=== PATIENT | female | born 1945 | race Caucasian/White ===

== ENCOUNTER 2016-04-22 16:55 | Observation (INO) | payer MEDICARE, OTHER ==
[2016-04-22] VITALS (7 sets, daily range): BP systolic 90–128; BP diastolic 54–60; PULSE 72; RESP 17–20; TEMP 97.8–100; O2SAT 94–100
[~2016-04-22] VITALS: Ht 170.2 cm; Wt 60.0 kg
[~2016-04-22 16:55] MED LIST: ADVAI250I PO; ARIC23TA PO; CETI10CH PO; CLON0.5T PO; LEVO.075 PO; MEMA14CA PO; OXCA300 PO; OXYB5TAB PO; TIOT18I INH; VITA20003 PO; [UNRECOGNIZED DRUG - CODE] IM; [UNRECOGNIZED DRUG - CODE] TOP
--- NOTE | 2016-04-22 17:09 | PD ---
HPI Chief Complaint: FEVER Time Seen by Provider: 17:08 Travel History International Travel<30 days: No Contact w/Intl Traveler<30days: No History of Present Illness HPI 71-year-old female with a history of COPD, dementia, MS is brought to the emergency department from her [facility] for evaluation of fever, cough and lethargy. Per EMS report the patient had a fever 100.8F and was 90% oxygen saturation on room air. Per EMS report the patient was noted to have a cough that started today by penitentiary staff. The patient is difficult to understand and a poor historian. When asking her questions I am able to understand her saying "I want to go back to my room" but otherwise cannot understand her. PFSH Past Medical History Autoimmune Disease: Yes (MS/ LEFT SIDED WEAKNESS) Bipolar Disorder: Yes Anxiety: Yes Depression: Yes COPD: Yes Cerebrovascular Accident: Yes Dementia: Yes Diminished Hearing: No Genitourinary: Yes (H/O UTI) Immune Disorder: Yes (MS AFFECTS L SIDE) Psychiatric: Yes (BIPOLAR ) Pneumonia: Yes Menopausal: Yes Tubal Ligation: Yes Social History Alcohol Use: No Tobacco Use: No (quit a long time ago) Substance Use: No Allergies-Medications (Allergen,Severity, Reaction): Coded Allergies: No Known Allergies (Unverified , 04/14/15) Reported Meds & Prescriptions Reported Meds & Active Scripts Active Reported Vitamin D3 (Cholecalciferol) 2,000 Unit Cap 2,000 Units PO DAILY Symbicort Inh (Budesonide/Formoterol Fumarate) 160-4.5 Mcg/Act Aero 2 Puff INH BID Spiriva Handihaler (Tiotropium Inh) 18 Mcg Cap 18 Mcg INH DAILY 1 capsule = 18 mcg Ditropan (Oxybutynin Chloride) 5 Mg Tab 5 Mg PO BID Trileptal (Oxcarbazepine) 300 Mg Tab 300 Mg PO BID Namenda Xr (Memantine) 28 Mg Caper 28 Mg PO DAILY Levothyroxine (Levothyroxine Sodium) 50 Mcg Tab 50 Mcg PO DAILY Donepezil 23 Mg Tab 23 Mg PO HS Do not split, crush or chew. Clonazepam 0.5 Mg Tab 0.5 Mg PO TID PRN Zyrtec Allergy (Cetirizine HCl) 10 Mg Tab 10 Mg PO DAILY Boudreauxs Butt Paste (Zinc Oxide (Topical)) 16 % Oin 1 Applic TOP BID PRN Ammonium Lactate (Lactic Acid (Ammonium Lactate)) 12% Lotn 1 Applic TOPICAL DAILY Review of Systems ROS Limitations: Poor Historian Except as stated in HPI: all other systems reviewed are Neg Physical Exam Exam Limitations: Poor Historian Narrative GENERAL: Well-nourished and well-developed female patient in no acute distress. SKIN: Warm and dry. HEAD: Normocephalic and atraumatic. EYES: No injection, drainage, or hyphema noted. PERRLA. EOMI. ENT: No nasal drainage noted. Oropharynx is clear. NECK: Supple and the trachea is midline. CARDIOVASCULAR: Regular rate and rhythm. RESPIRATORY: Decreased breath sounds at bases with crackles. No accessory muscle use, wheezing, rhonchi. Productive cough noted. GASTROINTESTINAL: Abdomen is soft, non-tender, and nondistended. MUSCULOSKELETAL: No obvious deformities, swelling, cyanosis, or ecchymosis is present throughout the upper and lower extremities. Patient has full range of motion without any signs of neurovascular compromise. NEUROLOGICAL: Awake, alert. Slurred speech and gait. Cranial nerves are grossly intact. Data Data Last Documented VS Vital Signs Date Time Temp Pulse Resp B/P Pulse Ox O2 Delivery O2 Flow Rate FiO2 04/22/16 19:00 98.5 04/22/16 17:34 17 100 Nasal Cannula 04/22/16 17:34 72 2 04/22/16 17:25 21 04/22/16 17:01 128/60 Orders Electrocardiogram (04/22/16 17:06) Complete Blood Count With Diff (04/22/16 17:06) Comprehensive Metabolic Panel (04/22/16 17:06) Lactic Acid Sepsis Protocol (04/22/16 17:06) Urinalysis - C+S If Indicated (04/22/16 17:06) Influenzae A/B Antigen (04/22/16 17:06) Blood Culture (04/22/16 17:06) Chest, Single Ap (04/22/16 17:06) Ecg Monitoring (04/22/16 17:06) Iv Access Insert/Monitor (04/22/16 17:06) Oximetry (04/22/16 17:06) Oxygen Administration (04/22/16 17:06) Albuterol-Ipratropium Neb (Duoneb Neb) (04/22/16 17:15) Acetaminophen (Tylenol) (04/22/16 17:15) Ct Brain W/O Iv Contrast(Rout) (04/22/16 17:17) Cath For Specimen (04/22/16 19:15) Ceftriaxone Inj (Rocephin Inj) (04/22/16 19:15) Azithromycin Inj (Zithromax Inj) (04/22/16 19:15) Labs Laboratory Tests Test 04/22/16 17:35 White Blood Count 8.6 TH/MM3 Red Blood Count 4.07 MIL/MM3 Hemoglobin 12.4 GM/DL Hematocrit 37.5 % Mean Corpuscular Volume 92.2 FL Mean Corpuscular Hemoglobin 30.5 PG Mean Corpuscular Hemoglobin 33.1 % Concent Red Cell Distribution Width 13.6 % Platelet Count 208 TH/MM3 Mean Platelet Volume 7.7 FL Neutrophils (%) (Auto) 78.9 % Lymphocytes (%) (Auto) 10.9 % Monocytes (%) (Auto) 9.7 % Eosinophils (%) (Auto) 0.3 % Basophils (%) (Auto) 0.2 % Neutrophils # (Auto) 6.8 TH/MM3 Lymphocytes # (Auto) 0.9 TH/MM3 Monocytes # (Auto) 0.8 TH/MM3 Eosinophils # (Auto) 0.0 TH/MM3 Basophils # (Auto) 0.0 TH/MM3 CBC Comment DIFF FINAL Differential Comment Sodium Level 142 MEQ/L Potassium Level 4.2 MEQ/L Chloride Level 105 MEQ/L Carbon Dioxide Level 28.1 MEQ/L Anion Gap 9 MEQ/L Blood Urea Nitrogen 10 MG/DL Creatinine 0.57 MG/DL Estimat Glomerular Filtration 104 ML/MIN Rate Random Glucose 86 MG/DL Lactic Acid Level 1.1 mmol/L Calcium Level 8.4 MG/DL Total Bilirubin 0.4 MG/DL Aspartate Amino Transf 25 U/L (AST/SGOT) Alanine Aminotransferase 16 U/L (ALT/SGPT) Alkaline Phosphatase 133 U/L Total Protein 6.6 GM/DL Albumin 3.4 GM/DL MDM Medical Decision Making Medical Screen Exam Complete: Yes Emergency Medical Condition: Yes Differential Diagnosis Pneumonia versus bronchitis versus UTI versus sepsis versus other Narrative Course 71-year-old female is brought to the emergency department for evaluation of fever, cough and lethargy. Patient has a low-grade temperature of 100.0F orally here in the emergency department. Otherwise vital signs are within normal limits. She had a 90% oxygen saturation on room air per EMS. IV access was obtained, labs have been drawn and sent. I did speak with the patient's daughter Connor who is a medical provider. She informed me that her mother's dementia has been worsening recently but that she is usually able to understand her mother's speech, states sometimes this can be worse with her MS. Chest x-ray read by radiology shows subtle hazy opacity in the left base may represent a small pleural effusion with atelectasis. CBC is unremarkable. CMP is unremarkable. Lactic acid is 1.1. Head CT is negative for any acute abnormalities. Patient has remained stable and without complaint while here in the emergency department. Reports improvement of symptoms after nebulizers. Her oxygen saturation has been maintained at around 98% on 2 L of nasal cannula. Patient is now easier to understand, she is no longer upset and anxious and her speech is easier to understand. Per the daughter this is her baseline speech. Patient will be admitted for pneumonia to receive antibiotics and nebulizers. Sepsis Criteria SIRS Criteria (2 or more): Temp > 100.9 or < 96.8 Physician Communication Physician Communication I spoke with Carlo GARCIAS for [facility] who agrees to admit the patient to Dr. Lee's service. Diagnosis Primary Impression: Pneumonia Qualified Code: J18.1 - Pneumonia of left lower lobe due to infectious organism Admitting Information Admitting Physician Requests: Admit Génesis Melgar Apr 22, 2016 17:09
[2016-04-22] MEDS ORDERED: ACETAMINOPHEN 325 MG TAB PO ONE (17:15)
[2016-04-22] MEDS ORDERED: AMMO12LO TOPICAL (17:23)
[2016-04-22] MEDS: RESP: ALBUTEROL 2.5 MG/IPRATROPIUM 0.5 MG NEB (SCH) INH (17:24)
[2016-04-22] MEDS ORDERED: LEVO50TA4 PO (17:29)
[2016-04-22] MEDS ORDERED: OXYB5TAB10 PO (17:29)
[2016-04-22] MEDS ORDERED: SYMB160A INH (17:29)
[2016-04-22] MEDS ORDERED: DONE1TAB63 PO (17:29)
[2016-04-22] MEDS ORDERED: MEMA28CA PO (17:29)
[2016-04-22] MEDS ORDERED: BOUDPST TOP (17:29)
[2016-04-22] MEDS ORDERED: CLON0.5T PO (17:29)
[2016-04-22] MEDS ORDERED: TRIL300T PO (17:29)
[2016-04-22] MEDS ORDERED: SPIRCAP INH (17:29)
[2016-04-22] MEDS ORDERED: VITA2000 PO (17:29)
[2016-04-22] MEDS ORDERED: ZYRT10TA PO (17:29)
--- NOTE | 2016-04-22 17:45 | RADRPT ---
EXAM DATE/TIME: 04/22/2016 17:24 [facility] COMPARISON: No previous studies available for comparison. INDICATIONS : Cough. MEDICAL HISTORY : Multiple sclerosis SURGICAL HISTORY : None. ENCOUNTER: Initial ACUITY: 1 day PAIN SCORE: Non-responsive. LOCATION: Bilateral chest FINDINGS: Portable AP view of the chest demonstrates a normal-sized cardiac silhouette. There is hazy opacity a t the left base. No pneumothorax is visualized. Bones and soft tissues demonstrate no acute finding. CONCLUSION: Subtle hazy opacity at the left base may represent a small pleural effusion with atelectasis. Otherwi se, no acute finding is identified. Carlo Daly MD on April 22, 2016 at 17:42 Board Certified Radiologist. This report was verified electronically.
[2016-04-22 17:58] LABS: AUTOMATED NEUTROPHIL # 6.8 TH/MM3 (1.8-7.7); BASOPHIL % 0.2 % (0.0-2.0); EOSINOPHIL % 0.3 % (0.0-4.0); HEMATOCRIT 37.5 % (35.0-46.0); HEMO FLAGS DIFF FINAL; LYMPH % 10.9 % (9.0-44.0); LYMPHOCYTE # 0.9 TH/MM3 (1.0-4.8); MEAN CELL VOLUME 92.2 FL (80.0-100.0); MEAN CORPUSCULAR HEMOGLOBIN 30.5 PG (27.0-34.0); MEAN CORPUSCULAR HGB CONC 33.1 % (32.0-36.0); MONO % 9.7 % (0.0-8.0); NEUT % 78.9 % (16.0-70.0); PLATELET COUNT 208 TH/MM3 (150-450); RED BLOOD COUNT 4.07 MIL/MM3 (4.00-5.30); RED CELL DISTRIBUTION WIDTH 13.6 % (11.6-17.2); WHITE BLOOD COUNT 8.6 TH/MM3 (4.0-11.0)
--- NOTE | 2016-04-22 18:24 | RADRPT ---
EXAM DATE/TIME: 04/22/2016 18:06 [facility] COMPARISON: CT BRAIN W/O CONTRAST, February 15, 2013, 18:42. INDICATIONS : Generalized weakness; fever. RADIATION DOSE: 36.42 CTDIvol (mGy) MEDICAL HISTORY : Dementia. SURGICAL HISTORY : None. ENCOUNTER: Initial ACUITY: 1 day PAIN SCALE: 3/10 LOCATION: cranial TECHNIQUE: Multiple contiguous axial images were obtained of the head. Using automated exposure control and adj ustment of the mA and/or kV according to patient size, radiation dose was kept as low as reasonably a chievable to obtain optimal diagnostic quality images. FINDINGS: CEREBRUM: The ventricles are normal for age. No evidence of midline shift, mass lesion, hemorrhage or acute in farction. No extra-axial fluid collections are seen. Chronic low attenuation seen in the bilateral p eriventricular white matter. POSTERIOR FOSSA: The cerebellum and brainstem are intact. The 4th ventricle is midline. The cerebellopontine angle i s unremarkable. EXTRACRANIAL: There is mucoperiosteal thickening seen of the sphenoid and ethmoid air cells, especially on the righ t. SKULL: The calvaria is intact. No evidence of skull fracture. CONCLUSION: No acute intracranial abnormality. Chronic white matter changes are again noted. There is sinus disea se. Carlo Lynn MD on April 22, 2016 at 18:22 Board Certified Radiologist. This report was verified electronically.
[2016-04-22 18:26] LABS: ALKALINE PHOSPHATASE 133 U/L (45-117); TOTAL BILIRUBIN ADULT 0.4 MG/DL (0.2-1.0)
[2016-04-22 18:55] LABS: ALT (GPT) 16 U/L (10-53); ANION GAP 9 MEQ/L (5-15); AST (GOT) 25 U/L (15-37); BICARBONATE 28.1 MEQ/L (21.0-32.0); BLOOD UREA NITROGEN 10 MG/DL (7-18); CHLORIDE 105 MEQ/L (98-107); GLOMERULAR FILTRATION RATE 104 ML/MIN (>89); POTASSIUM 4.2 MEQ/L (3.5-5.1); SODIUM (NA) 142 MEQ/L (136-145)
[2016-04-22] MEDS ORDERED: AZITHROMYCIN INJ 500 MG in SODIUM CHLOR 0.9% 250 ML INJ 250 ML IV ONE (19:15)
[2016-04-22] MEDS ORDERED: cefTRIAXone INJ 1,000 MG in SODIUM CHLORIDE 0.9% INJ 100 ML IV ONE (19:15)
[2016-04-22 20:44] LABS: BACTERIA, URINE MANY /hpf; BLOOD, URINE NEG (NEG); COMMENT (UR) CATH-CULTURE IND; CULTURE IF INDICATED CATH CULTURE IND; GLUCOSE,URINE NEG (NEG); KETONE, URINE 40 mg/dL (NEG); MUCUS URINE FEW /lpf (OCC); NITRITE,URINE POS (NEG); PH, URINE 5.5 (5.0-8.5); SQUAMOUS EPITHELIAL CELL URINE <1 /hpf (0-5); URINE COLOR YELLOW (YELLW/STRAW)
[2016-04-22] MEDS ORDERED: SODIUM CHLORIDE 0.9% FLUSH 5 ML FLUSH FLUSH PRN (20:45)
[2016-04-22] MEDS ORDERED: ACETAMINOPHEN 325 MG TAB PO PRN (20:45)
[2016-04-22] MEDS ORDERED: RESP: ALBUTEROL 2.5 MG/IPRATROPIUM 0.5 MG NEB (PRN) NEB (20:45)
[2016-04-22] MEDS ORDERED: NALOXONE HCL 0.4 MG/ML AMP IV PRN (20:45)
[2016-04-22] MEDS ORDERED: ONDANSETRON HCL 4 MG/2 ML VIAL IVP PRN (20:45)
[2016-04-22] MEDS: SODIUM CHLORIDE 0.9% FLUSH 5 ML FLUSH FLUSH SCH (21:00)
[2016-04-22] MEDS: HEPARIN SODIUM - SQ 10,000 UNITS/ML VIAL SQ SCH (22:08)
[2016-04-23 04:15] VITALS: BP 112/71; PULSE 68; RESP 16; TEMP 98.2; O2SAT 97
[2016-04-23] MEDS: RESP: ALBUTEROL 2.5 MG/IPRATROPIUM 0.5 MG NEB (SCH) NEB ×2 (07:28→15:32)
[2016-04-23 07:30] VITALS: O2SAT 95
--- NOTE | 2016-04-23 07:51 | HHI.HP ---
HPI Service [facility] Primary Care Physician Unknown Admission Diagnosis Pneumonia Diagnoses: Chief Complaint: cough (Pili Gonzalez) Travel History International Travel<30 Days: No Contact w/Intl Traveler <30 Da: No Traveled to Known Affected Are: No (Pili Gonzalez) History of Present Illness This is a 71-year-old female with a history of COPD, dementia, MS brought to the emergency department from her penitentiary facility [facility] for evaluation of fever, cough and lethargy. Per EMS report the patient had a fever 100.8F and was 90% oxygen saturation on room air. Patient was noted to have a cough that started today by penitentiary staff. The patient was difficult to understand and a poor historian. Pt. was evaluated in the ED, was noted febrile T-100, BP 128/60, HR 72, sats 95% on RA. CXR done showed left base opacity. CT head negative. Last Impressions Head CT 04/22/16 1717 Signed Impressions: Service Date/Time: Friday, April 22, 2016 18:06 - CONCLUSION: No acute intracranial abnormality. Chronic white matter changes are again noted. There is sinus disease. Carlo Lynn MD Chest X-Ray 04/22/16 1706 Signed Impressions: Service Date/Time: Friday, April 22, 2016 17:24 - CONCLUSION: Subtle hazy opacity at the left base may represent a small pleural effusion with atelectasis. Otherwise, no acute finding is identified. Carlo Daly MD Cultures were obtained, Influenza negative. Laboratory work up unremarkable, lactic acid negative. UA + UTI, culture pending. Antibiotics have been started. She was given duonebs. Pt.'s mental status is now at baseline per daughter, she has no complaints. Denies CP, SOB, no cough. Pt. pleasantly demented, cooperative. Pt. admitted for further evaluation and treatment. (Pili Gonzalez) Review of Systems ROS Limitations: Poor Historian (Pili Gonzalez) Past Family Social History Past Medical History COPD MS with left sided deficit Dementia Bipolar Past Surgical History None reported Reported Medications Reported Meds & Active Scripts Active Reported Vitamin D3 (Cholecalciferol) 2,000 Unit Cap 2,000 Units PO DAILY Symbicort Inh (Budesonide/Formoterol Fumarate) 160-4.5 Mcg/Act Aero 2 Puff INH BID Spiriva Handihaler (Tiotropium Inh) 18 Mcg Cap 18 Mcg INH DAILY 1 capsule = 18 mcg Ditropan (Oxybutynin Chloride) 5 Mg Tab 5 Mg PO BID Trileptal (Oxcarbazepine) 300 Mg Tab 300 Mg PO BID Namenda Xr (Memantine) 28 Mg Caper 28 Mg PO DAILY Levothyroxine (Levothyroxine Sodium) 50 Mcg Tab 50 Mcg PO DAILY Donepezil 23 Mg Tab 23 Mg PO HS Do not split, crush or chew. Clonazepam 0.5 Mg Tab 0.5 Mg PO TID PRN Zyrtec Allergy (Cetirizine HCl) 10 Mg Tab 10 Mg PO DAILY Boudreauxs Butt Paste (Zinc Oxide (Topical)) 16 % Oin 1 Applic TOP BID PRN Ammonium Lactate (Lactic Acid (Ammonium Lactate)) 12% Lotn 1 Applic TOPICAL DAILY (Pili Gonzalez) Allergies: Coded Allergies: No Known Allergies (Unverified , 04/14/15) Active Ordered Medications Inpatient Medications Acetaminophen (Tylenol) 650 mg Q4H PRN PO TEMP > 100.4; Start 04/22/16 at 20:45 Acetaminophen 650 mg 650 mg ONCE ONCE PO Last administered on 04/22/16 17:15; Start 04/22/16 at 17:15; Stop 04/22/16 at 17:16; Status DC Albuterol/ Ipratropium (Duoneb Neb) 1 ampule Q8HR WHILE AWAKE NEB NEB Last administered on 04/23/16 07:28; Start 04/23/16 at 08:00 Azithromycin/ Sodium Chloride (Zithromax Inj/ NS 250 ml Inj) 250 ml @ 250 mls/ hr Q24H IV ; Start 04/23/16 at 19:00 Ceftriaxone Sodium 1000 mg/ Sodium Chloride 100 ml @ 200 mls/hr Q24H IV ; Start 04/23/16 at 20:00 Ceftriaxone Sodium/Sodium Chloride (Rocephin Inj/NS Inj) 100 ml @ 200 mls/hr ONCE ONCE IV Last administered on 04/22/16 19:27; Start 04/22/16 at 19:15; Stop 04/22/16 at 19:44; Status DC Heparin Sodium (Porcine) (Heparin Inj) 5,000 units Q12H SQ Last administered on 04/22/16t 22:08; Start 04/22/16 at 21:00 IV Flush (NS Flush) 2 ml BID FLUSH ; Start 04/22/16 at 21:00 Naloxone HCl 0.4 mg 0.4 mg UNSCH PRN IV SEE LABEL COMMENTS; Start 04/22/16 at 20 :45 Ondansetron HCl (Zofran Inj) 4 mg Q6H PRN IVP NAUSEA OR VOMITING; Start at 20:45 Family History Unable to obtain Social History [facility]. No reported ETOH, substance abuse, smoked many years ago. Daughter is an HEALTH CARE ADMINISTRATOR at this facility. (Pili Gonzalez HEALTH CARE ADMINISTRATOR) Physical Exam Vital Signs Vital Signs Date Time Temp Pulse Resp B/P Pulse Ox O2 Delivery O2 Flow Rate FiO2 04/23/16 07:30 95 21 04/23/16 04:15 98.2 68 16 112/71 97 04/22/16 23:43 99 04/22/16 22:45 97.8 72 20 90/54 97 04/22/16 22:00 98 20 90/58 95 04/22/16 19:00 98.5 04/22/16 17:34 17 100 Nasal Cannula 04/22/16 17:34 94 Nasal Cannula 2.00 04/22/16 17:34 72 17 100 2 04/22/16 17:34 100 Nasal Cannula 2 04/22/16 17:25 94 21 04/22/16 17:01 100.0 72 18 128/60 Physical Exam GENERAL: This is a well-nourished, well-developed patient, in no apparent distress. SKIN: No rashes, ecchymoses or lesions. Cool and dry. HEAD: Atraumatic. Normocephalic. No temporal or scalp tenderness. EYES: Pupils equal round and reactive. Extraocular motions intact. No scleral icterus. No injection or drainage. ENT: Nose without bleeding, purulent drainage or septal hematoma. Throat without erythema, tonsillar hypertrophy or exudate. Uvula midline. Airway patent. NECK: Trachea midline. No JVD or lymphadenopathy. Supple, nontender, no meningeal signs. CARDIOVASCULAR: Regular rate and rhythm without murmurs, gallops, or rubs. RESPIRATORY: Diminished at bases. GASTROINTESTINAL: Abdomen soft, non-tender, nondistended. No hepato-splenomegaly , or palpable masses. No guarding. MUSCULOSKELETAL: Extremities without clubbing, cyanosis, or edema. No joint tenderness, effusion, or edema noted. No calf tenderness. Negative Homans sign bilaterally. NEUROLOGICAL: Awake, alert oriented to self and others, speech clear, follows simple commands. Pleasant, demented. Laboratory Laboratory Tests Test 04/22/16 04/22/16 17:35 20:00 White Blood Count 8.6 Red Blood Count 4.07 Hemoglobin 12.4 Hematocrit 37.5 Mean Corpuscular Volume 92.2 Mean Corpuscular Hemoglobin 30.5 Mean Corpuscular Hemoglobin 33.1 Concent Red Cell Distribution Width 13.6 Platelet Count 208 Mean Platelet Volume 7.7 Neutrophils (%) (Auto) 78.9 Lymphocytes (%) (Auto) 10.9 Monocytes (%) (Auto) 9.7 Eosinophils (%) (Auto) 0.3 Basophils (%) (Auto) 0.2 Neutrophils # (Auto) 6.8 Lymphocytes # (Auto) 0.9 Monocytes # (Auto) 0.8 Eosinophils # (Auto) 0.0 Basophils # (Auto) 0.0 CBC Comment DIFF FINAL Differential Comment Sodium Level 142 Potassium Level 4.2 Chloride Level 105 Carbon Dioxide Level 28.1 Anion Gap 9 Blood Urea Nitrogen 10 Creatinine 0.57 Estimat Glomerular Filtration 104 Rate Random Glucose 86 Lactic Acid Level 1.1 Calcium Level 8.4 Total Bilirubin 0.4 Aspartate Amino Transf 25 (AST/SGOT) Alanine Aminotransferase 16 (ALT/SGPT) Alkaline Phosphatase 133 Total Protein 6.6 Albumin 3.4 Urine Color YELLOW Urine Turbidity HAZY Urine pH 5.5 Urine Specific [place] 1.022 Urine Protein TRACE Urine Glucose (UA) NEG Urine Ketones 40 Urine Occult Blood NEG Urine Nitrite POS Urine Bilirubin NEG Urine Urobilinogen LESS THAN 2.0 Urine Leukocyte Esterase NEG Urine RBC 5 Urine WBC 3 Urine Squamous Epithelial <1 Cells Urine Bacteria MANY Urine Mucus FEW Microscopic Urinalysis Comment CATH-CULTURE IND Date/Time Procedure Status Source Growth 04/22/16 20:00 Urine Culture Received Urine Catheterized Urine Pending 04/22/16 20:00 Influenza Types A,B Antigen (SKYLAR) - Final Complete Nasal Washing NEGATIVE FOR FLU A AND B ANTIGEN.... 04/22/16 17:35 Aerobic Blood Culture Received Blood Peripheral Pending 04/22/16 17:35 Anaerobic Blood Culture Received Blood Peripheral Pending (Pili Gonzalez) Result Diagram: 04/22/16 1735 04/22/16 1735 Imaging Last Impressions Head CT 04/22/16 1717 Signed Impressions: Service Date/Time: Friday, April 22, 2016 18:06 - CONCLUSION: No acute intracranial abnormality. Chronic white matter changes are again noted. There is sinus disease. Carlo Lynn MD Chest X-Ray 04/22/166 Signed Impressions: Service Date/Time: Friday, April 22, 2016 17:24 - CONCLUSION: Subtle hazy opacity at the left base may represent a small pleural effusion with atelectasis. Otherwise, no acute finding is identified. Carlo Daly MD (Pili Gonzalez) Assessment and Plan Problem List: (1) Pneumonia (2) COPD (chronic obstructive pulmonary disease) (3) Dementia (4) Hx of multiple sclerosis (5) UTI (urinary tract infection) (6) Altered mental status (7) Bipolar disorder Assessment and Plan Admit to Dr. Lee 71 year with dementia, COPD, MS. Brought in for fever, cough, hypoxia, AMS. CXR found subtle hazy opacity left base and UTI. PNA, etiology unclear, prior hx of dysphagia, lives at [place] -continue empiric antibiotics -follow cultures -Duonebs -Swallow evaluation UTI -Follow cultures -Continue abx Dementia -Continue home meds COPD, stable -Duonebs -Continue Symbicort and Spiriva Hx MS -stable, monitor Bipolar disorder, stable -Continue home meds Home medications reviewed and initiated as indicated. SCDs/Heparin for DVT prophylaxis PT for evaluation and treatment Plan of care discussed with attending, RN. Further management of the patient will be dependent on the hospital course. This patient was seen by myself and Dr. Lee, this H/P is written on his behalf. (Pili Gonzalez) Assessment and Plan seen, examined by myself, Dr Lee, today Discussed with patient, she is confused, no distress however coughing repeatedly Bilateral crackles on chest exam Continue antibiotics, supplemental oxygen, as needed bronchodilators Discussed with mid level provider The exam, history, and the medical decision-making described in the above note were completed with the assistance of the mid-level provider. I reviewed the findings presented. I attest that I had a [id number] encounter with the patient on the same day, and personally performed and documented my assessment and findings in the medical record. (Kerline Lee MD) Problem Qualifiers (1) Pneumonia: Qualified Code: J18.1 - Pneumonia of left lower lobe due to infectious organism (2) COPD (chronic obstructive pulmonary disease): Qualified Code: J44.9 - Chronic obstructive pulmonary disease, unspecified COPD type (3) Dementia: Qualified Code: F03.90 - Dementia without behavioral disturbance, unspecified dementia type (4) UTI (urinary tract infection): Qualified Code: N39.0 - Urinary tract infection without hematuria, site unspecified (5) Altered mental status: Qualified Code: R40.4 - Transient alteration of awareness (6) Bipolar disorder: Qualified Code: F31.9 - Bipolar affective disorder, remission status unspecified Pili Gonzalez Apr 23, 2016 07:51 Kerline Lee MD Apr 23, 2016 13:54
[2016-04-23 08:51] VITALS: BP 109/61; PULSE 72; RESP 17; TEMP 98.3; O2SAT 95
[2016-04-23] MEDS: CETIRIZINE HCL 10 MG TAB PO SCH (10:23)
[2016-04-23] MEDS: LEVOTHYROXINE SODIUM 50 MCG TAB PO SCH (10:24)
[2016-04-23] MEDS: OXYBUTYNIN CHLORIDE 5 MG TAB PO SCH ×2 (10:24→22:27)
[2016-04-23] MEDS: BUDESONIDE-FORMOTEROL 160/4.5 MCG INHALER INH SCH ×2 (10:24→22:26)
[2016-04-23] MEDS: SODIUM CHLORIDE 0.9% FLUSH 5 ML FLUSH FLUSH SCH ×2 (10:25→22:26)
[2016-04-23] MEDS: TIOTROPIUM BROMIDE 18 MCG INH INH SCH (10:25)
[2016-04-23] MEDS: OXcarbazepine 300 MG TAB PO SCH ×2 (10:26→22:27)
[2016-04-23] MEDS: HEPARIN SODIUM - SQ 10,000 UNITS/ML VIAL SQ SCH ×2 (10:29→22:26)
--- NOTE | 2016-04-23 13:04 | EKG ---
Date Performed: 04/22/2016 Time Performed: 17:53:21 PTAGE: 71 years EKG: SINUS TACHYCARDIA WITH FREQUENT VENTRICULAR PREMATURE COMPLEXES LEFT AXIS DEVIATION ABNORMA L R WAVE PROGRESSION ABNORMAL ECG PREVIOUS TRACING : 02/15/2013 16.52 Compared to previous tracing, PVCs are now present. DOCTOR: Oliver Calloway Interpretating Date/Time 04/23/2016 13:02:20
[2016-04-23 14:24] VITALS: BP 101/62; PULSE 78; RESP 18; TEMP 97.5; O2SAT 94
[2016-04-23 17:23] VITALS: BP 129/57; PULSE 89; RESP 16; TEMP 97.7; O2SAT 94
[2016-04-23 19:50] VITALS: BP 128/63; PULSE 80; RESP 18; TEMP 98.2; O2SAT 98
[2016-04-23] MEDS: cefTRIAXone INJ 1,000 MG in SODIUM CHLORIDE 0.9% INJ 100 ML IV SCH (22:25)
[2016-04-23] MEDS: DONEPEZIL HCL 23 MG TAB PO SCH (22:27)
[2016-04-23] MEDS: AZITHROMYCIN INJ 500 MG in SODIUM CHLOR 0.9% 250 ML INJ 250 ML IV SCH (22:57)
[2016-04-24] VITALS (7 sets, daily range): BP systolic 102–128; BP diastolic 55–72; PULSE 74–90; RESP 14–20; TEMP 97.7–98.2; O2SAT 92–98
[2016-04-24] MEDS: LEVOTHYROXINE SODIUM 50 MCG TAB PO SCH (06:02)
[2016-04-24] MEDS: RESP: ALBUTEROL 2.5 MG/IPRATROPIUM 0.5 MG NEB (SCH) NEB ×2 (08:13→16:05)
--- NOTE | 2016-04-24 08:38 | HHI.PR ---
Subjective Subjective Remarks + cough no cp no sob demented pleasant no fever overnight Review of Systems Constitutional Constitutional Remarks 12 point ROS limited Vitals/Results Vital Signs Vital Signs Date Time Temp Pulse Resp B/P Pulse Ox O2 Delivery O2 Flow Rate FiO2 04/24/16 08:15 95 21 04/24/16 08:00 98.2 78 14 113/72 95 04/24/16 00:11 98.0 74 18 112/62 98 04/23/16 19:50 98.2 80 18 128/63 98 04/23/16 17:23 97.7 89 16 129/57 94 04/23/16 14:24 97.5 78 18 101/62 94 04/23/16 08:51 98.3 72 17 109/61 95 CBC/BMP: 04/22/16 1735 04/22/16 1735 Physical Exam General General Appearance: Well Developed, No Acute Distress, Comfortable Eyes Eye Exam: Pupils Equal, Pupils Reactive Ears & Nose Ears & Nose Exam: Nasal Mucosa [place] Throat Throat Exam: Oral Mucosa [place] & Moist Pulmonary Resp Exam: Crackles, Rhonchi Cardiology CV Exam: Regular Gastrointestinal/Abdomen GI Exam: Soft, Non-Tender, Bowel Sounds Present, Non-Distended Musculoskeletal MS Exam: Joints Intact Integumentary Skin Exam: Warm, Dry Extremeties Extremities Exam: No Edema, Pedal Pulses Palpable Neurologic Neuro Exam: Alert, Awake, Speech Clear, Moving All Extremities, No Focal Deficits VTE Prophylaxis VTE Prophylaxis Meds: Heparin Assessment/Plan Problem List: (1) Pneumonia (2) COPD (chronic obstructive pulmonary disease) (3) Bipolar disorder (4) Dementia (5) UTI (urinary tract infection) (6) Altered mental status (7) Hx of multiple sclerosis Assessment/Plan 71 year with dementia, COPD, MS. Brought in for fever, cough, hypoxia, AMS. CXR found subtle hazy opacity left base and UTI. PNA, etiology unclear, prior hx of dysphagia, lives at [place] -continue empiric antibiotics -follow cultures-negative so far -Duonebs -Swallow evaluation-recommendations noted, no aspiration observed UTI -Follow cultures-negative so far -Continue abx Dementia -Continue home meds COPD, stable -Duonebs -Continue Symbicort and Spiriva Hx MS -stable, monitor Bipolar disorder, stable -Continue home meds SCDs/Heparin for DVT prophylaxis PT for evaluation and treatment Not ready for discharge yet, lungs coarse, + cough poss. dc tomorrow to [facility] for HHC and pt D/W RN D/W pt D/W Dr. Lee This patient was seen by myself and Dr. Lee, this note is written on his behalf. Problem Qualifiers (1) Pneumonia: Qualified Code: J18.1 - Pneumonia of left lower lobe due to infectious organism (2) COPD (chronic obstructive pulmonary disease): Qualified Code: J44.9 - Chronic obstructive pulmonary disease, unspecified COPD type (3) Bipolar disorder: Qualified Code: F31.9 - Bipolar affective disorder, remission status unspecified (4) Dementia: Qualified Code: F03.90 - Dementia without behavioral disturbance, unspecified dementia type (5) UTI (urinary tract infection): Qualified Code: N39.0 - Urinary tract infection without hematuria, site unspecified (6) Altered mental status: Qualified Code: R40.4 - Transient alteration of awareness Pili Gonzalez Apr 24, 2016 08:38
--- NOTE | 2016-04-24 08:40 | HHI.FF ---
Face to Face Verification Diagnosis: (1) Pneumonia (2) COPD (chronic obstructive pulmonary disease) (3) Bipolar disorder (4) Dementia (5) UTI (urinary tract infection) (6) Altered mental status (7) Hx of multiple sclerosis Physical Therapy Order: Evaluate and Treat Home Health Nursing Order: Medical education Nursing assessment with vital signs Quarantine Officer Order: To Evaluate: Support services I have seen patient Sophia Mcintyre on 04/24/16. My clinical findings support the need for the requested home health care services because: Deconditioned w/ increased weakness Limited ability to care for self Need for psychosocial assistance Impaired cognition/judgement I certify that my clinical findings support that this patient is homebound because: Impaired cognitive ability/safety Unsafe to leave home unassisted Need for psychosocial assistance Pili Gonzalez [facility] Apr 24, 2016 08:39
[2016-04-24] MEDS: CETIRIZINE HCL 10 MG TAB PO SCH (08:46)
[2016-04-24] MEDS: SODIUM CHLORIDE 0.9% FLUSH 5 ML FLUSH FLUSH SCH ×2 (08:46→21:00)
[2016-04-24] MEDS: OXYBUTYNIN CHLORIDE 5 MG TAB PO SCH ×2 (08:46→21:48)
[2016-04-24] MEDS: OXcarbazepine 300 MG TAB PO SCH ×2 (08:46→21:48)
[2016-04-24] MEDS: TIOTROPIUM BROMIDE 18 MCG INH INH SCH (08:46)
[2016-04-24] MEDS: BUDESONIDE-FORMOTEROL 160/4.5 MCG INHALER INH SCH ×2 (08:46→21:48)
[2016-04-24] MEDS: HEPARIN SODIUM - SQ 10,000 UNITS/ML VIAL SQ SCH ×2 (08:47→21:48)
[2016-04-24] MEDS: AZITHROMYCIN INJ 500 MG in SODIUM CHLOR 0.9% 250 ML INJ 250 ML IV SCH (18:55)
[2016-04-24] MEDS: cefTRIAXone INJ 1,000 MG in SODIUM CHLORIDE 0.9% INJ 100 ML IV SCH (21:47)
[2016-04-24] MEDS: DONEPEZIL HCL 23 MG TAB PO SCH (21:48)
[2016-04-25 03:36] VITALS: BP 122/66; PULSE 76; RESP 16; TEMP 97.9; O2SAT 93
[2016-04-25] MEDS: LEVOTHYROXINE SODIUM 50 MCG TAB PO SCH (05:33)
[2016-04-25 07:20] VITALS: BP 124/78; PULSE 84; RESP 16; TEMP 98.3; O2SAT 94
[2016-04-25] MEDS: BUDESONIDE-FORMOTEROL 160/4.5 MCG INHALER INH SCH (07:54)
[2016-04-25] MEDS: CETIRIZINE HCL 10 MG TAB PO SCH (07:55)
[2016-04-25] MEDS: RESP: ALBUTEROL 2.5 MG/IPRATROPIUM 0.5 MG NEB (SCH) NEB (07:55)
[2016-04-25] MEDS: TIOTROPIUM BROMIDE 18 MCG INH INH SCH (07:55)
[2016-04-25] MEDS: OXcarbazepine 300 MG TAB PO SCH (07:55)
[2016-04-25] MEDS: HEPARIN SODIUM - SQ 10,000 UNITS/ML VIAL SQ SCH (07:55)
[2016-04-25] MEDS: OXYBUTYNIN CHLORIDE 5 MG TAB PO SCH (07:55)
[2016-04-25 08:01] VITALS: O2SAT 92
[2016-04-25] MEDS: SODIUM CHLORIDE 0.9% FLUSH 5 ML FLUSH FLUSH SCH (09:00)
[2016-04-25 09:03] LABS: HEMATOCRIT 33.7 % (35.0-46.0); MEAN CELL VOLUME 92.6 FL (80.0-100.0); MEAN CORPUSCULAR HGB CONC 32.4 % (32.0-36.0); PLATELET COUNT 205 TH/MM3 (150-450); RED BLOOD COUNT 3.64 MIL/MM3 (4.00-5.30); RED CELL DISTRIBUTION WIDTH 13.5 % (11.6-17.2); REVIEW FLAG FINAL
[2016-04-25 09:41] LABS: BICARBONATE 30.1 MEQ/L (21.0-32.0); POTASSIUM 3.4 MEQ/L (3.5-5.1)
[2016-04-25 11:24] VITALS: BP 115/56; PULSE 61; RESP 16; TEMP 98; O2SAT 95
--- NOTE | 2016-04-25 11:42 | HHI.PR ---
Subjective Interval History Sleeping, arousable, denies complaints, has an occasional cough, overall better, Review of Systems Constitutional Constitutional Remarks 10 systems reviewed, otherwise negative, not reliable, Vitals/Results Vital Signs Vital Signs Date Time Temp Pulse Resp B/P Pulse Ox O2 Delivery O2 Flow Rate FiO2 04/25/16 11:24 98.0 61 16 115/56 95 04/25/16 08:01 92 21 04/25/16 07:20 98.3 84 16 124/78 94 04/25/16 03:36 97.9 76 16 122/66 93 04/24/16 23:08 75 102/60 92 04/24/16 20:03 90 20 119/65 92 04/24/16 15:17 97.9 89 14 128/59 95 CBC/BMP: 04/25/16 0830 04/25/16 0830 Lab Results Laboratory Tests Test 04/25/16 08:30 White Blood Count 7.0 TH/MM3 Red Blood Count 3.64 MIL/MM3 Hemoglobin 10.9 GM/DL Hematocrit 33.7 % Mean Corpuscular Volume 92.6 FL Mean Corpuscular Hemoglobin 30.0 PG Mean Corpuscular Hemoglobin 32.4 % Concent Red Cell Distribution Width 13.5 % Platelet Count 205 TH/MM3 Mean Platelet Volume 7.2 FL Sodium Level 148 MEQ/L Potassium Level 3.4 MEQ/L Chloride Level 112 MEQ/L Carbon Dioxide Level 30.1 MEQ/L Anion Gap 6 MEQ/L Blood Urea Nitrogen 12 MG/DL Creatinine 0.52 MG/DL Estimat Glomerular Filtration 116 ML/MIN Rate Random Glucose 93 MG/DL Calcium Level 8.1 MG/DL Physical Exam General General Appearance: Well Developed, No Acute Distress, Comfortable Eyes Eye Exam: Pupils Equal, Pupils Reactive Ears & Nose Ears & Nose Exam: Nasal Mucosa [place] Throat Throat Exam: Oral Mucosa [place] & Moist Pulmonary Resp Remarks there are occasional crackles Cardiology CV Exam: Regular Gastrointestinal/Abdomen GI Exam: Soft, Non-Tender, Bowel Sounds Present, Non-Distended Musculoskeletal MS Exam: Normal Tone Integumentary Skin Exam: Warm, Dry Extremeties Extremities Exam: No Edema, Pedal Pulses Palpable Neurologic Neuro Exam: Awake, Speech Clear, Moving All Extremities, No Focal Deficits Psychiatric Psych Exam: Appropriate Responses VTE Prophylaxis VTE Prophylaxis Meds: Heparin Assessment/Plan Problem List: (1) Pneumonia (2) COPD (chronic obstructive pulmonary disease) (3) Bipolar disorder (4) Dementia (5) UTI (urinary tract infection) (6) Altered mental status (7) Hx of multiple sclerosis Assessment/Plan Assessment Pneumonia, improving suspected urinary infection however urine culture was negative Dementia, similar to baseline Hypoxemia initially, now on room air Hypokalemia, replacing History of dysphagia, bipolar Management Switch antibiotic to by mouth, continue for another week Discharge to assisted living facility Continue potassium replacement Continue home medications otherwise Discussed with nurse Discussed with social welfare clerk Discharge Minutes: 45 Problem Qualifiers (1) Pneumonia: Qualified Code: J18.1 - Pneumonia of left lower lobe due to infectious organism (2) COPD (chronic obstructive pulmonary disease): Qualified Code: J44.9 - Chronic obstructive pulmonary disease, unspecified COPD type (3) Bipolar disorder: Qualified Code: F31.9 - Bipolar affective disorder, remission status unspecified (4) Dementia: Qualified Code: F03.90 - Dementia without behavioral disturbance, unspecified dementia type (5) UTI (urinary tract infection): Qualified Code: N39.0 - Urinary tract infection without hematuria, site unspecified (6) Altered mental status: Qualified Code: R40.4 - Transient alteration of awareness Kerline Lee MD Apr 25, 2016 11:42
[2016-04-25] MEDS ORDERED: POTASSIUM CHLORIDE 20 MEQ CONTROLLED RELEASE TAB PO SCH (11:45)
[2016-04-25] MEDS ORDERED: CLON0.5T PO (11:51)
[2016-04-25] MEDS ORDERED: MINO100 PO (11:51)
--- NOTE | 2016-04-25 11:52 | HHI.PR ---
. Attending Note - Vital Signs Date Time Temp Pulse Resp B/P Pulse Ox O2 Delivery O2 Flow Rate FiO2 04/25/16 11:24 98.0 61 16 115/56 95 04/25/16 08:01 92 21 04/25/16 07:20 98.3 84 16 124/78 94 04/25/16 03:36 97.9 76 16 122/66 93 04/24/16 23:08 75 102/60 92 04/24/16 20:03 90 20 119/65 92 04/24/16 15:17 97.9 89 14 128/59 95 CV - Regular Rate and Rhythm No Murmur Lungs - Clear to Auscultation Abdomen - Soft, Nontender Active Bowel Sounds Present No Masses Extremities - Warm without Edema No Sores or Open Wounds -: 04/25/1630 04/25/1630 Kerline Lee MD Apr 25, 2016 11:52
[2016-04-25 16:13] VITALS: BP 113/52; PULSE 70; RESP 18; TEMP 98.2; O2SAT 95
[2016-04-25] MEDS ORDERED: MINOCYCLINE HCL 50 MG CAP PO SCH (21:00)
--- NOTE | 2016-04-26 18:37 | HHI.DS ---
Discharge Summary Admission Date Apr 22, 2016 at 20:20 Discharge Date: Apr 25, 2016 Admitting Diagnosis Pneumonia (1) Pneumonia Diagnosis: Principal (2) COPD (chronic obstructive pulmonary disease) Diagnosis: Secondary (3) Dementia Diagnosis: Secondary (4) Hx of multiple sclerosis Diagnosis: Secondary (5) UTI (urinary tract infection) Diagnosis: Principal (6) Altered mental status Diagnosis: Secondary (7) Bipolar disorder Diagnosis: Secondary Brief History This was a 71-year-old female with a history of COPD, dementia, MS brought to the emergency department from her senior living facility [facility] for evaluation of fever, cough and lethargy. Per EMS report the patient had a fever 100.8F and was 90% oxygen saturation on room air. Patient was noted to have a cough that started day of admission by senior living staff. The patient was difficult to understand and a poor historian. Pt. was evaluated in the ED, was noted febrile T-100, BP 128/60, HR 72, sats 95% on RA. CXR done showed left base opacity. CT head negative. Last Impressions Head CT 04/22/161716 Signed Impressions: Service Date/Time: Friday, April 22, 2016 18:06 - CONCLUSION: No acute intracranial abnormality. Chronic white matter changes are again noted. There is sinus disease. Carlo Lynn MD Chest X-Ray 04/22/161705 Signed Impressions: Service Date/Time: Friday, April 22, 2016 17:24 - CONCLUSION: Subtle hazy opacity at the left base may represent a small pleural effusion with atelectasis. Otherwise, no acute finding is identified. Carlo Daly MD Cultures were obtained, Influenza negative. Laboratory work up unremarkable, lactic acid negative. UA + UTI, culture pending. Antibiotics have been started. She was given duonebs. Pt.'s mental status is now at baseline per daughter, she has no complaints. Denies CP, SOB, no cough. Pt. pleasantly demented, cooperative. Pt. admitted for further evaluation and treatment. CBC/BMP: 04/25/16 0830 04/25/16 0830 Significant Findings Laboratory Tests Test 04/25/16 08:30 Red Blood Count 3.64 MIL/MM3 (4.00-5.30) Hemoglobin 10.9 GM/DL (11.6-15.3) Hematocrit 33.7 % (35.0-46.0) Sodium Level 148 MEQ/L (136-145) Potassium Level 3.4 MEQ/L (3.5-5.1) Chloride Level 112 MEQ/L (98-107) Calcium Level 8.1 MG/DL (8.5-10.1) Imaging Last Impressions Head CT 04/22/16 1717 Signed Impressions: Service Date/Time: Friday, April 22, 2016 18:06 - CONCLUSION: No acute intracranial abnormality. Chronic white matter changes are again noted. There is sinus disease. Carlo Lynn MD Chest X-Ray 04/22/16 1706 Signed Impressions: Service Date/Time: Friday, April 22, 2016 17:24 - CONCLUSION: Subtle hazy opacity at the left base may represent a small pleural effusion with atelectasis. Otherwise, no acute finding is identified. Carol Daly MD PE at Discharge General General Appearance: Well Developed, No Acute Distress, Comfortable Eyes Eye Exam: Pupils Equal, Pupils Reactive Ears & Nose Ears & Nose Exam: Nasal Mucosa [place] Throat Throat Exam: Oral Mucosa [place] & Moist Pulmonary Resp Remarks there are occasional crackles Cardiology CV Exam: Regular Gastrointestinal/Abdomen GI Exam: Soft, Non-Tender, Bowel Sounds Present, Non-Distended Musculoskeletal MS Exam: Normal Tone Integumentary Skin Exam: Warm, Dry Extremeties Extremities Exam: No Edema, Pedal Pulses Palpable Neurologic Neuro Exam: Awake, Speech Clear, Moving All Extremities, No Focal Deficits Psychiatric Psych Exam: Appropriate Responses VTE Prophylaxis VTE Prophylaxis Meds: Heparin Hospital Course These are the diagnosis used for treatment during this hospital stay . (1) Pneumonia (2) COPD (chronic obstructive pulmonary disease) (3) Bipolar disorder (4) Dementia (5) UTI (urinary tract infection) (6) Altered mental status (7) Hx of multiple scleros PNA, etiology unclear, prior hx of dysphagia, lives [facility] -continue empiric antibiotics started on admission blood cultures done, cultures-negative so far -Duonebs treatment used for her wheezing, SOB -Swallow evaluation-recommendations noted, no aspiration observed to rule out aspiration. UTI -Follow cultures-negative so far -Continue abx Dementia -Continue home meds COPD, stable -Duonebs used -Continue Symbicort and Spiriva Hx MS -stable, monitor Bipolar disorder, stable -Continue home meds SCDs/Heparin for DVT prophylaxis PT for evaluation and treatment poss. dc tomorrow to [facility] for HHC and ptis Pneumonia, improving on day of discharge suspected urinary infection however urine culture was negative Dementia, similar to baseline Hypoxemia initially, now on room air Hypokalemia, replacing History of dysphagia, bipolar Management day of discharge per Dr. Lee Switch antibiotic to by mouth, continue for another week Discharge to assisted living facility Continue potassium replacement Continue home medications otherwise Discussed with nurse Discussed with social media designer Pt Condition on Discharge: Fair Discharge Disposition: [facility] Discharge Instructions DIET: Follow Instructions for: Soft Diet Speech Therapy-Diet Recommends: Soft Additional Diet Instructions: Sit up chin down during eating and drinking Assist patient with eating and drinking Activities you can perform: Weight Bearing as Everardo New Medications: Clonazepam (Clonazepam) 0.5 Mg Tab 0.5 MG PO TID PRN anxiety #90 Ref 0 TAB Minocycline (Minocycline) 100 Mg Cap 100 MG PO BID Mgmt Bacterial Infection #10 Ref 0 CAP Continued Medications: Budesonide-Formoterol Inh (Symbicort Inh) 160-4.5 Mcg/Act Aero 2 PUFF INH BID #1 Ref 0 INHALER Cetirizine (Zyrtec Allergy) 10 Mg Tab 10 MG PO DAILY Allergies Ref 0 TAB Cholecalciferol (Vitamin D3) 2,000 Unit Cap 2000 UNITS PO DAILY Nutritional Supplement #1 Ref 0 BOTTLE Donepezil (Donepezil) 23 Mg Tab 23 MG PO HS Do not split, crush or chew. Dementia #30 Ref 0 TAB Lactic Acid (Ammonium Lactate) (Ammonium Lactate) 12% Lotn 1 APPLIC TOPICAL DAILY #1 Ref 0 BOTTLE Levothyroxine (Levothyroxine) 50 Mcg Tab 50 MCG PO DAILY Thyroid #30 Ref 0 TAB Memantine Er (Namenda Xr) 28 Mg Caper 28 MG PO DAILY Alzheimer Disease #30 Ref 0 CAP Oxcarbazepine (Trileptal) 300 Mg Tab 300 MG PO BID Seizure Control #60 Ref 0 TAB Oxybutynin (Ditropan) 5 Mg Tab 5 MG PO BID #60 Ref 0 TAB Tiotropium Inh (Spiriva Handihaler) 18 Mcg Cap 18 MCG INH DAILY 1 capsule = 18 mcg COPD #30 Ref 0 CAP Zinc Oxide (Topical) ([place]auxs Butt Paste) 16 % Oin 1 APPLIC TOP BID PRN DIAPER CHANGE Discontinued Medications: Clonazepam (Clonazepam) 0.5 Mg Tab 0.5 MG PO TID PRN ANXIETY #90 Ref 0 TAB Jazmine Amador Apr 26, 2016 18:37
== END 2016-04-25 17:25 | disposition home or self-care (01) ==
LOC: NEPC 16:55 → NEDA 20:20 → INTOOBSV 20:20 → NEPFCDU 22:36
PROVIDERS: ADMIT Specialist; ATTEND Specialist
DX: J18.9 Pneumonia, unspecified organism (principal); J44.9 Chronic obstructive pulmonary disease, unspecified; F03.90 Unspecified dementia, unspecified severity, without behavioral disturbance, psychotic disturbance, mood disturbance, and anxiety; G35 Multiple sclerosis; N39.0 Urinary tract infection, site not specified; F31.9 Bipolar disorder, unspecified; R41.82 Altered mental status, unspecified; E87.6 Hypokalemia; F41.9 Anxiety disorder, unspecified; Z86.73 Personal history of transient ischemic attack (TIA), and cerebral infarction without residual deficits; Z79.51 Long term (current) use of inhaled steroids
CPT/HCPCS: 70450; 71010; 80048; 80053; 81001; 83605; 85025; 85027; 87040; 87086; 87804; 92526; 92610; 93005; 94640; 94664; 96374; 96375; 97162; 97530; 99285; G0378; G8987; G8988; G8996; G8997; J0456; J0696; J1644; J7050; P9612

== ENCOUNTER 2016-08-01 09:20 | Inpatient (IN) | payer MEDICARE, OTHER ==
[2016-08-01] VITALS (8 sets, daily range): BP systolic 111–145; BP diastolic 56–74; PULSE 61–86; RESP 14–24; TEMP 96.7; O2SAT 96–100
[~2016-08-01] VITALS: Ht 157.5 cm; Wt 52.2 kg
[~2016-08-01 09:20] MED LIST changes: -ADVAI250I PO; +AMMO12LO TOPICAL; -ARIC23TA PO; +BOUDPST TOP; -CETI10CH PO; +DONE1TAB63 PO; -LEVO.075 PO; +LEVO50TA4 PO; -MEMA14CA PO; +MEMA28CA PO; +MINO100 PO; -OXCA300 PO; -OXYB5TAB PO; +OXYB5TAB10 PO; +SPIRCAP INH; +SYMB160A INH; -TIOT18I INH; +TRIL300T PO; +VITA2000 PO; -VITA20003 PO; +ZYRT10TA PO; -[UNRECOGNIZED DRUG - CODE] IM; -[UNRECOGNIZED DRUG - CODE] TOP
[2016-08-01] MEDS ORDERED: SODIUM CHLOR 0.9% 1000 ML INJ 1,000 ML IV ONE (09:44)
--- NOTE | 2016-08-01 10:00 | RADRPT ---
EXAM DATE/TIME: 08/01/2016 09:44 [facility] COMPARISON: CT BRAIN W/O CONTRAST, April 22, 2016, 18:06. INDICATIONS : ### stoke alert, Left arm drift. RADIATION DOSE: 56.38 CTDIvol (mGy) This report was called by Dr. Johnson to Dr. Juarez at 9: 56 AM MEDICAL HISTORY : Non-responsive. SURGICAL HISTORY : Non-responsive. MS ENCOUNTER: Initial ACUITY: 1 day PAIN SCALE: 0/10 LOCATION: cranial TECHNIQUE: Multiple contiguous axial images were obtained of the head. Using automated exposure control and adj ustment of the mA and/or kV according to patient size, radiation dose was kept as low as reasonably a chievable to obtain optimal diagnostic quality images. FINDINGS: CEREBRUM: The ventricles are normal for age. No evidence of midline shift, mass lesion, hemorrhage or acute in farction. Cerebral white matter disease with scattered hypodensity is identified throughout the cereb ral hemispheres. There's been no significant change since the previous exam. No extra-axial fluid col lections are seen. POSTERIOR FOSSA: The cerebellum and brainstem are intact. The 4th ventricle is midline. The cerebellopontine angle i s unremarkable. EXTRACRANIAL: The visualized portion of the orbits is intact. SKULL: The calvaria is intact. No evidence of skull fracture. CONCLUSION: Cerebral white matter disease characteristic of the patient's history of multiple scl erosis. No evidence of significant interval change, acute infarct, hemorrhage or mass effect. Dyllan Zuñiga MD on August 01, 2016 at 9:52 Board Certified Radiologist. This report was verified electronically.
[2016-08-01 10:02] LABS: I-STAT POTASSIUM 3.8 MMOL/L (3.5-4.9); I-STAT SODIUM 143 MMOL/L (138-146)
[2016-08-01 10:11] LABS: AUTOMATED NEUTROPHIL # 3.1 TH/MM3 (1.8-7.7); BASOPHIL % 0.7 % (0.0-2.0); EOSINOPHIL # 0.1 TH/MM3 (0-0.4); EOSINOPHIL % 1.9 % (0.0-4.0); HEMATOCRIT 36.4 % (35.0-46.0); HEMO FLAGS DIFF FINAL; LYMPHOCYTE # 1.3 TH/MM3 (1.0-4.8); MEAN CELL VOLUME 90.6 FL (80.0-100.0); MEAN CORPUSCULAR HEMOGLOBIN 29.9 PG (27.0-34.0); MEAN CORPUSCULAR HGB CONC 33.1 % (32.0-36.0); MONO % 10.3 % (0.0-8.0); NEUT % 61.1 % (16.0-70.0); PLATELET COUNT 196 TH/MM3 (150-450); RED BLOOD COUNT 4.01 MIL/MM3 (4.00-5.30); RED CELL DISTRIBUTION WIDTH 16.5 % (11.6-17.2); WHITE BLOOD COUNT 5.1 TH/MM3 (4.0-11.0)
[2016-08-01] MEDS ORDERED: IODIXANOL 320 MG/ML 10 ML VIAL (for Rad CT) IV ONE (10:11)
[2016-08-01] MEDS ORDERED: ASPIRIN EC 325 MG TABEC PO STA (10:15)
[2016-08-01 10:17] LABS: APTT (PATIENT) 23.8 SEC (24.3-30.1); PROTHROMBIN TIME - PATIENT 11.2 SEC (9.8-11.6)
--- NOTE | 2016-08-01 10:26 | RADRPT ---
EXAM DATE/TIME: 08/01/2016 09:56 [facility] COMPARISON: CT BRAIN W/O CONTRAST, August 01, 2016, 9:44. INDICATIONS : Stroke alert, Left side droop. IV CONTRAST: 46 cc Visipaque (iodixanol) IV ; Cumulative dose for multiple exams. RADIATION DOSE: 13.37 CTDIvol (mGy) ; Combined studies MEDICAL HISTORY : Non-responsive. SURGICAL HISTORY : Non-responsive. MS ENCOUNTER: Initial ACUITY: 1 day PAIN SCALE: 0/10 LOCATION: cranial TECHNIQUE: Volumetric scanning was performed using a multi-row detector CT scanner. The data was post processed with a variety of visualization algorithms including full volume maximum intensity projection, multi -planar sliding thin slab reformation, curved planar reformation, and surface rendering techniques. Using automated exposure control and adjustment of the mA and/or kV according to patient size, radiat ion dose was kept as low as reasonably achievable to obtain optimal diagnostic quality images. FINDINGS: Both distal internal carotid arteries are widely patent. The basilar artery is widely patent. The kaitlin earance of the anterior and middle cerebral circulation is within normal limits. The posterior cerebr al circulation is within normal limits. No large or central vessel lesion is identified. No aneurysm is seen. CONCLUSION: No large or central vessel occlusion identified. Shine Weiner MD on August 01, 2016 at 10:22 Board Certified Radiologist. This report was verified electronically.
[2016-08-01 10:27] LABS: CREATINE KINASE 67 U/L (26-192)
[2016-08-01 10:34] LABS: BLOOD, URINE NEG (NEG); GLUCOSE,URINE NEG (NEG); KETONE, URINE NEG (NEG); NITRITE,URINE NEG (NEG); PH, URINE 5.5 (5.0-8.5); SQUAMOUS EPITHELIAL CELL URINE <1 /hpf (0-5); URINE COLOR YELLOW (YELLW/STRAW)
[2016-08-01] MEDS ORDERED: MOBI7.5T PO (10:44)
[2016-08-01] MEDS ORDERED: CETI10 PO (10:44)
[2016-08-01 10:48] LABS: AMPHETAMINE, URINE NEG (NEG); BARBITURATES, URINE NEG (NEG); COCAINE, URINE NEG (NEG)
[2016-08-01] MEDS: SODIUM CHLOR 0.9% 1000 ML INJ 1,000 ML IV SCH ×3 (11:11→16:51)
[2016-08-01] MEDS: ASPIRIN EC 325 MG TABEC PO SCH (11:12)
--- NOTE | 2016-08-01 11:38 | PD ---
HPI Chief Complaint: Stroke Alert Time Seen by Provider: 09:41 Travel History International Travel<30 days: No Contact w/Intl Traveler<30days: No Traveled to known affect area: No History of Present Illness HPI This is a 71-year-old snf patient with a past medical history of multiple sclerosis and dementia who presents from the snf this a.m. where she was noted to have slumped over the table while eating an amp upon regaining consciousness appeared confused and weak on the left side. Incidental reported to have occurred approximately 8 AM which was at least 2 hours prior to arrival. Patient complains of a mild headache but otherwise is unable to give any history. Patient unaware of the incident of loss of consciousness described above. Patient denies chest pain shortness of breath feeling lightheaded dizzy. Patient also denies urinary symptoms abdominal pain nausea vomiting diarrhea fever chills. PFSH Past Medical History Autoimmune Disease: Yes (MS/ LEFT SIDED WEAKNESS) Bipolar Disorder: Yes Anxiety: Yes Depression: Yes High Cholesterol: Yes COPD: Yes Cerebrovascular Accident: Yes Dementia: Yes Diminished Hearing: No Genitourinary: Yes (H/O UTI) Immune Disorder: Yes (MS AFFECTS L SIDE) Psychiatric: Yes (BIPOLAR ) Respiratory: Yes (COPD) Pneumonia: Yes Triglycerides - High: Yes Tetanus Vaccination: Unknown Influenza Vaccination: No ?: Not Menopausal: Yes Tubal Ligation: Yes Past Surgical History Body Medical Devices: NAHUM Social History Alcohol Use: No Tobacco Use: No (quit a long time ago) Substance Use: No Allergies-Medications (Allergen,Severity, Reaction): Coded Allergies: No Known Allergies (Unverified , 08/01/16) Reported Meds & Prescriptions Reported Meds & Active Scripts Active Clonazepam 0.5 Mg Tab 0.5 Mg PO TID PRN Reported Mobic (Meloxicam) 7.5 Mg Tab 7.5 Mg PO DAILY Cetirizine (Cetirizine HCl) 10 Mg Tab 10 Mg PO DAILY Vitamin D3 (Cholecalciferol) 2,000 Unit Cap 2,000 Units PO DAILY Symbicort Inh (Budesonide/Formoterol Fumarate) 160-4.5 Mcg/Act Aero 2 Puff INH BID Spiriva Handihaler (Tiotropium Inh) 18 Mcg Cap 18 Mcg INH DAILY 1 capsule = 18 mcg Ditropan (Oxybutynin Chloride) 5 Mg Tab 5 Mg PO BID Trileptal (Oxcarbazepine) 300 Mg Tab 300 Mg PO BID Namenda Xr (Memantine) 28 Mg Caper 28 Mg PO DAILY Levothyroxine (Levothyroxine Sodium) 50 Mcg Tab 50 Mcg PO DAILY Donepezil 23 Mg Tab 23 Mg PO HS Do not split, crush or chew. Rjudreauxs Butt Paste (Zinc Oxide (Topical)) 16 % Oin 1 Applic TOP BID PRN Ammonium Lactate (Lactic Acid (Ammonium Lactate)) 12% Lotn 1 Applic TOPICAL DAILY Physical Exam Narrative GENERAL: [Elderly female patient in no acute distress SKIN: Focused skin assessment warm/dry.no lesions no cyanosis no erythema HEAD: Atraumatic. Normocephalic. EYES: Pupils equal and round and reactive . No scleral icterus. No injection or drainage. ENT: No nasal bleeding or discharge. Mucous membranes oral mucosa somewhat dry NECK: Trachea midline. No JVD. CARDIOVASCULAR: S1-S2 appreciated. Regular rate and rhythm. No murmur appreciated. Pulses normal throughout. RESPIRATORY: No accessory muscle use. Clear to auscultation. Breath sounds equal bilaterally. GASTROINTESTINAL: Abdomen soft, non-tender, nondistended. Hepatic and splenic margins not palpable. Bowel sounds normal. No peritoneal signs. MUSCULOSKELETAL: No obvious deformities. No clubbing. No cyanosis. No edema. NEUROLOGICAL: Patient awake and alert oriented to person and place only positive left upper extremity weakness with mild abnormality and finger to nose sensation grossly intact no hyperreflexia no flaccidity lower extremity with mild weakness reported to be baseline. PSYCHIATRIC: Appropriate mood and affect; insight and judgment normal. No suicidal or homicidal ideation. Data Data Last Documented VS Vital Signs Date Time Temp Pulse Resp B/P Pulse Ox O2 Delivery O2 Flow Rate FiO2 08/01/16 10:26 100 Nasal Cannula 3 08/01/16 09:34 65 24 114/74 08/01/16 09:27 96.7 Orders Diet Npo (08/01/16 Breakfast) Activity Bed Rest (08/01/16 ) Electrocardiogram (08/01/16 ) I-Stat Creatinine (08/01/16 09:44) I-Stat Profile (08/01/16 09:44) Prothrombin Time / Inr (Pt) (08/01/16 09:44) Act Partial Throm Time (Ptt) (08/01/16 09:44) Complete Blood Count With Diff (08/01/16 09:44) Fibrinogen (08/01/16 09:44) Creatine Kinase (Cpk) (08/01/16 09:44) Troponin I (08/01/16 09:44) Ua Includes Microscopic (08/01/16 09:44) Drug Screen, Random Urine (08/01/16 09:44) Type And Screen (08/01/16 09:44) Ct Brain W/O Iv Contrast(Rout) (08/01/16 ) Cta Neck W Iv Contrast W 3d (08/01/16 09:44) Consult Neurology (08/01/16 ) Blood Glucose (08/01/16 09:44) Ecg Monitoring (08/01/16 09:44) Neuro Checks Q2HX12,Q4H (08/01/16 09:44) Nursing Bedside Swallow Assess .ONCE (08/01/16 09:44) Iv Access Insert/Monitor (08/01/16 09:44) NPO (08/01/16 09:44) Oximetry (08/01/16 09:44) Oxygen Administration (08/01/16 09:44) Sodium Chlor 0.9% 1000 Ml Inj (Ns 1000 M (08/01/16 09:44) Resp Oxygen Raoul C Titrat 1-4 L (08/01/16 09:44) Cath For Specimen (08/01/16 09:44) Cta Brain W Iv Contrast W 3d (08/01/16 09:50) Iodixanol 320 Inj (Rad Ct) (Visipaque 32 (08/01/16 10:11) Westergren Sedimentation Rate (08/01/16 10:15) Rapid Plasma Regin (Rpr) W Ttr (08/01/16 10:15) Thyroid Stimulating Hormone (08/01/16 10:15) Free Thyroxine (T4) (08/01/16 10:15) Vitamin B1 (Thiamine) (08/01/16 10:15) Vitamin B12 (08/01/16 10:15) Vitamin B6 (08/01/16 10:15) Urinalysis - C+S If Indicated (08/01/16 10:15) Methylmalonic Acid (Mma) (08/01/16 10:15) Mri Brain W&W/O Contrast (08/01/16 10:15) Echo 2d Comp With Doppler (08/01/16 10:15) Holter Monitor Recording (08/01/16 10:15) Broadcast Field Supervisor / Telemetry REINALDO.Q8H (08/01/16 10:15) [place] (08/01/16 10:15) Aspirin Ec (Ecotrin Ec) (08/01/16 10:15) Sodium Chlor 0.9% 1000 Ml Inj (Ns 1000 M (08/01/16 10:15) Lipid Profile (08/01/16 10:15) ^ Other Nursing Orders (08/01/16 10:15) Consult Pt Eval & Treat (08/01/16 10:15) Scd&Teds Bilateral/Knee High REINALDO.QSHIFT (08/01/16 10:15) Aspirin Ec (Ecotrin Ec) (08/01/16 10:15) Sodium Chlor 0.9% 1000 Ml Inj (Ns 1000 M (08/01/16 11:00) Labs Laboratory Tests Test 08/01/16 08/01/16 09:30 10:20 White Blood Count 5.1 TH/MM3 Red Blood Count 4.01 MIL/MM3 Hemoglobin 12.0 GM/DL Bedside Hemoglobin 11.9 G/DL Hematocrit 36.4 % Bedside Hematocrit 35.0 % Mean Corpuscular Volume 90.6 FL Mean Corpuscular Hemoglobin 29.9 PG Mean Corpuscular Hemoglobin 33.1 % Concent Red Cell Distribution Width 16.5 % Platelet Count 196 TH/MM3 Mean Platelet Volume 8.0 FL Neutrophils (%) (Auto) 61.1 % Lymphocytes (%) (Auto) 26.0 % Monocytes (%) (Auto) 10.3 % Eosinophils (%) (Auto) 1.9 % Basophils (%) (Auto) 0.7 % Neutrophils # (Auto) 3.1 TH/MM3 Lymphocytes # (Auto) 1.3 TH/MM3 Monocytes # (Auto) 0.5 TH/MM3 Eosinophils # (Auto) 0.1 TH/MM3 Basophils # (Auto) 0.0 TH/MM3 CBC Comment DIFF FINAL Differential Comment Erythrocyte Sedimentation Rate 7 mm/hr Prothrombin Time 11.2 SEC Prothromb Time International 1.0 RATIO Ratio Activated Partial 23.8 SEC Thromboplast Time Fibrinogen 261 mg/dL Bedside Sodium 143 MMOL/L Bedside Potassium 3.8 MMOL/L Bedside Chloride 104 MMOL/L Bedside Blood Urea Nitrogen 18 MG/DL Bedside Creatinine 0.5 MG/DL Bedside Glucose 99 MG/DL Total Creatine Kinase 67 U/L Troponin I LESS THAN 0.02 NG/ML Triglycerides Level 73 MG/DL Cholesterol Level 215 MG/DL LDL Cholesterol 123 MG/DL HDL Cholesterol 77.0 MG/DL Cholesterol/HDL Ratio 2.79 RATIO Vitamin B12 Level 534 PG/ML Free Thyroxine 0.92 NG/DL Thyroid Stimulating Hormone 0.684 uIU/ML 3rd Gen Blood Type O NEGATIVE Antibody Screen NEGATIVE Blood Bank Comment Urine Color YELLOW Urine Turbidity CLEAR Urine pH 5.5 Urine Specific Gardner 1.028 Urine Protein TRACE mg/dL Urine Glucose (UA) NEG mg/dL Urine Ketones NEG mg/dL Urine Occult Blood NEG Urine Nitrite NEG Urine Bilirubin NEG Urine Urobilinogen LESS THAN 2.0 MG/DL Urine Leukocyte Esterase NEG Urine RBC 4 /hpf Urine WBC LESS THAN 1 /hpf Urine Squamous Epithelial <1 /hpf Cells Microscopic Urinalysis Comment Urine Opiates Screen NEG Urine Barbiturates Screen NEG Urine Amphetamines Screen NEG Urine Benzodiazepines Screen NEG Urine Cocaine Screen NEG Urine Cannabinoids Screen NEG MDM Medical Decision Making Medical Screen Exam Complete: Yes Emergency Medical Condition: Yes Medical Record Reviewed: Yes Interpretation(s) EKG shows sinus rhythm left axis deviation and T-wave inversion in V2 and V3 incomplete right bundle branch block Differential Diagnosis Differential diagnosis stroke transient ischemic attack MS exacerbation dehydration left upper extremity weakness Narrative Course 71-year-old female history of multiple sclerosis and dementia noted to have a change in level of alertness this a.m. approximately 8:00 brought to the ER T2 scan of the brain without contrast negative for acute stroke bleed or mass patient had a progressive improvement in mental status noted to have left upper extremity weakness WHITE cell count and electrolytes are remarkable urinalysis is negative for infection case discussed with Dr. Pérez neurology patient given aspirin 325 mg by mouth and normal saline at maintenance rate plan is to admit patient to telemetry bed inpatient status patient to receive a MRI of the brain CT angiography the brain performed in the ER consistent with multiple sclerosis but otherwise negative. Case discussed with Dr. Alexander Hospitalist who accepted the patient. Procedures EKG Prior to Arrival: No Physician Communication Physician Communication Case discussed with Dr. Pérez neurology and Dr. Alexander Hospital Diagnosis Primary Impression: Altered mental status Qualified Code: R40.4 - Transient alteration of awareness Additional Impressions: TIA (transient ischemic attack) Qualified Code: G45.9 - Transient cerebral ischemia, unspecified type Left arm weakness Admitting Information Admitting Physician Requests: Admit Condition: Stable Wendy Juarez MD Aug 01, 2016 11:38
--- NOTE | 2016-08-01 11:59 | RADRPT ---
EXAM DATE/TIME: 08/01/2016 09:56 [facility] COMPARISON: CTA BRAIN W 3D RECON, August 01, 2016, 9:56. CT BRAIN W/O CONTRAST, August 01, 2016, 9:44. INDICATIONS : Stroke alert, Left side droop. IV CONTRAST: 46 cc Visipaque (iodixanol) IV ; Cumulative dose for multiple exams. RADIATION DOSE: 13.37 CTDIvol (mGy) ; Combined studies MEDICAL HISTORY : Non-responsive. SURGICAL HISTORY : Non-responsive. MS ENCOUNTER: Initial ACUITY: 1 day PAIN SCALE: Non-responsive LOCATION: neck Elevated flow velocities and ICA/CCA ratios have been found to correlate with increased degrees of vessel stenosis, calculated as percentage of diameter relative to a normal segment of distal ICA/CCA. TECHNIQUE: Volumetric scanning was performed using a multirow detector CT scanner. The data was post processed with a variety of visualization algorithms including full-volume maximum intensity projection, multip lanar sliding thin-slab reformation, curved-planar reformation, and surface-rendering techniques. Us ing automated exposure control and adjustment of the mA and/or kV according to patient size, radiatio n dose was kept as low as reasonably achievable to obtain optimal diagnostic quality images. FINDINGS: AORTIC ARCH: There is a three-vessel origin of the great vessels from the aorta. No evidence of ostial narrowing. RIGHT CAROTID: The common carotid is widely patent. There is a small weblike area of stenosis in proximal carotid bu lb. There is no hemodynamically significant stenosis. The more cephalad portion of the internal carot id and the external carotid are widely patent. LEFT CAROTID: The common carotid artery is intact. The carotid bulb has a normal configuration without ulceration or narrowing. The internal carotid artery lumen is smooth without stenosis. The external carotid ar reinaldo is intact. VERTEBRALS: The vertebral arteries have a symmetric diameter. No stenotic lesions are seen. CONCLUSION: 1. Minimal stenosis in the carotid bulb on the right. No hemodynamically significant lesion is identi fied. 2. Degenerative changes in the cervical spine. Shine Weiner MD on August 01, 2016 at 11:55 Board Certified Radiologist. This report was verified electronically.
[2016-08-01 13:06] LABS: FREE T4 0.92 NG/DL (0.76-1.46)
--- NOTE | 2016-08-01 13:07 | MB ---
cc: LATA MICHAELS M.D. DATE OF CONSULTATION 08/01/2016 DATE OF 1945 HISTORY Patient is a 71-year-old woman with a history of dementia and MS seen by Dr. Casanova in the office. Last seen here by Dr. Casanova in 2011 after a fall with baseline COPD residual left-sided weakness, bipolar who lives in a senior care. She was called for stroke alert today with left-sided weakness and confusion. REVIEW OF SYSTEMS Is not really able to be obtained from her. MEDICATIONS I know from the office, she has been on Trileptal for unspecified "convulsions". She has also been on Namenda. REVIEW OF SYSTEMS She is wheelchair bound and self-propels herself in the wheelchair. No weakness on the left side noted from the last note. Nevertheless, she was called for a stroke alert as noted with the possible new left-sided weakness. I saw her in CT scan. The CT of the brain shows that she has old left-sided changes consistent with MS in the white matter more so on the on the right side. PHYSICAL EXAM On exam here, there were no carotid bruits. HEART: Regular rhythm. I did not detect a murmur. NEUROLOGIC: She is awake and alert. Speech is fluent. She is not aphasic. She could repeat and name. She does not know her history very well. She cannot tell me why she lives in a senior care. Does not know how the MS has affected her. There is evidence of baseline dementia. Visual bello full. Pupils are equal. Face is symmetric. She moves all her extremities well in the left upper and lower extremity 5/5 throughout. Toes are downgoing bilaterally. Pinprick was intact bilateral upper and lower extremities and face, although some inconsistency there. PAST MEDICAL HISTORY As above, also a history of: 1. Fever, cough, lethargy 2. COPD 3. Dementia 4. MS 5. Living at [facility]. 6. In April she was seen in the hospital here. She had a UTI antibiotics was started. She would not notice is noted to have any major asymmetry on her neuro exam at that time. CT scan of the brain showed white matter changes at that time. LABORATORY DATA CT as noted. Basic metabolic profile was back from the stat labs and are negative so far with a normal creatinine. IMPRESSION I do not see any evidence for a stroke here and I am not going to give her t-PA. We will have to get further history from the senior care. I will be following her with you in the hospital. For now, I would treat her with an aspirin. We can do an MRI of brain and I will see her back in follow up. MD BRENDEN Hairston/LILY /10:08 AM /12:44 PM
[2016-08-01] MEDS ORDERED: clonazePAM 0.5 MG TAB PO PRN (14:15)
--- NOTE | 2016-08-01 15:24 | EKG ---
Date Performed: 08/01/2016 Time Performed: 09:41:03 PTAGE: 71 years EKG: Sinus rhythm MARKED LEFT AXIS DEVIATION LOW QRS VOLTAGE IN PRECORDIAL LEADS INCOMPLETE RIGHT BUNDLE BRANCH BLOCK ABNORMAL ECG Compared to prior tracing no significant change PREVIOUS TRACING : 04/22/2016 17.53 DOCTOR: Claus Burk Interpretating Date/Time 08/01/2016 15:23:46
--- NOTE | 2016-08-01 16:08 | RADRPT ---
EXAM DATE/TIME: 08/01/2016 14:32 [facility] COMPARISON: CTA CAROTID ARTERIES W 3D RECON, August 01, 2016, 9:56. INDICATIONS : CVA MEDICAL HISTORY : Hypercholesterolemia. Hypertension. CVA. MS. Bipolar. COPD. Dementia. SURGICAL HISTORY : Tubal ligation. ENCOUNTER: Initial ACUITY: 1 day PAIN SCORE: 0/10 LOCATION: Bilateral neck. PEAK SYSTOLIC VELOCITIES (cm/sec): ICA/CCA RATIO: Right: 1.5 Left: 1.4 ICA: Right: 111 Left: 110 CCA: Right: 75 Left: 76 ECA: Right: 85 Left: 84 VERTEBRAL: Right: 40 antegrade Left: 41 antegrade Elevated flow velocities and ICA/CCA ratios have been found to correlate with increased degrees of vessel stenosis, calculated as percentage of diameter relative to a normal segment of distal ICA/CCA FINDINGS: RIGHT CAROTID: No significant stenosis is visualized. The waveforms are within normal limits. LEFT CAROTID: No significant stenosis is visualized. The waveforms are within normal limits. VERTEBRAL ARTERIES: Antegrade flow is seen in both vertebral arteries. MISCELLANEOUS: None. CONCLUSION: 1. No hemodynamically significant stenosis. Cooper Kelly MD on August 01, 2016 at 16:03 Board Certified Radiologist. This report was verified electronically.
[2016-08-01] MEDS ORDERED: GADODIAMIDE PF 287 MG/ML 5 ML VIAL (for RAD MRI) IV ONE (16:29)
--- NOTE | 2016-08-01 16:41 | HHI.HP ---
[facility] Morgan Calero M.D. Admission Diagnosis ams CONFUSION LEFT SIDED WEAKNESS Diagnoses: Chief Complaint: altered mental status Travel History International Travel<30 Days: No Contact w/Intl Traveler <30 Da: No Traveled to Known Affected Are: No History of Present Illness This is a 71-year-old female with a history of COPD, dementia, MS brought to the emergency department from her group home facility [facility] as a stroke alert. Patient is evaluated in the emergency room, she is asking what is she doing here. She knows she is in a hospital. Per ER report, patient was not a slumped over the table while eating, when she regained consciousness she appeared confused and weak on the left side. She was last seen normal around 8 AM, placed hours prior to arrival. Patient did complain of a mild headache. Patient is unable to recall event when discussed with her. She denies any chest pain, no shortness of breath. Patient has history of dementia and appears to be at baseline. She was last admitted under our services in April for pneumonia. She has no focal deficits, equal upper extremity strength 5 out of 5. Speech is clear. Oriented to self and place. Laboratory workup completed unremarkable. Imaging studies negative for acute CVA. She has been given aspirin. Patient is admitted for further evaluation and treatment. Review of Systems ROS Limitations: Altered Mental Status Past Family Social History Past Medical History COPD MS with left sided deficit Dementia Bipolar Past Surgical History None reported Reported Medications Reported Meds & Active Scripts Active Clonazepam 0.5 Mg Tab 0.5 Mg PO TID PRN Reported Mobic (Meloxicam) 7.5 Mg Tab 7.5 Mg PO DAILY Cetirizine (Cetirizine HCl) 10 Mg Tab 10 Mg PO DAILY Vitamin D3 (Cholecalciferol) 2,000 Unit Cap 2,000 Units PO DAILY Symbicort Inh (Budesonide/Formoterol Fumarate) 160-4.5 Mcg/Act Aero 2 Puff INH BID Spiriva Handihaler (Tiotropium Inh) 18 Mcg Cap 18 Mcg INH DAILY 1 capsule = 18 mcg Ditropan (Oxybutynin Chloride) 5 Mg Tab 5 Mg PO BID Trileptal (Oxcarbazepine) 300 Mg Tab 300 Mg PO BID Namenda Xr (Memantine) 28 Mg Caper 28 Mg PO DAILY Levothyroxine (Levothyroxine Sodium) 50 Mcg Tab 50 Mcg PO DAILY Donepezil 23 Mg Tab 23 Mg PO HS Do not split, crush or chew. Boudreauxs Butt Paste (Zinc Oxide (Topical)) 16 % Oin 1 Applic TOP BID PRN Ammonium Lactate (Lactic Acid (Ammonium Lactate)) 12% Lotn 1 Applic TOPICAL DAILY Allergies: Coded Allergies: No Known Allergies (Unverified , 08/01/16) Active Ordered Medications Inpatient Medications Aspirin (Ecotrin Ec) 325 mg ONCE STAT PO ; Start 08/01/16 at 10:15; Stop at 10:41; Status DC Aspirin 325 mg 325 mg DAILY PO Last administered on 08/01/16t 11:12; Start at 10:15 Budesonide/ Formoterol Fumarate (Symbicort 160-4.5 Inh) 2 puff BID INH ; Start 08/01/16 at 21:00 Cetirizine HCl (ZyrTEC) 10 mg DAILY PO ; Start 08/02/16 at 09:00 Clonazepam (KlonoPIN) 0.5 mg TID PRN PO anxiety; Start 08/01/16 at 14:15 Donepezil HCl (Aricept) 23 mg HS PO ; Start 08/01/16 at 21:00 Levothyroxine Sodium (Synthroid) 50 mcg DAILY@06 PO ; Start 08/02/16 at 06:00 Memantine (Namenda) 10 mg BID PO ; Start 08/02/16 at 09:00 Oxcarbazepine (Trileptal) 300 mg BID PO ; Start 08/01/16 at 21:00 Oxybutynin Chloride (Ditropan) 5 mg BID PO ; Start 08/01/16 at 21:00 Sodium Chloride (NS 1000 ml Inj) 1,000 ml @ 200 mls/hr Q5H IV Last administered on 08/01/16 12:06; Start 08/01/16 at 11:00 Tiotropium [place] (Spiriva Inh) 18 mcg DAILY INH ; Start 08/02/16 at 09:00 Family History Unable to obtain Social History [facility]. No reported ETOH, substance abuse, smoked many years ago. Daughter is an DELIVERY AND MAIL SORTER at this facility. Physical Exam Vital Signs Vital Signs Date Time Temp Pulse Resp B/P Pulse Ox O2 Delivery O2 Flow Rate FiO2 08/01/16 13:49 61 16 134/67 96 Nasal Cannula 3 08/01/16 12:07 70 24 145/65 98 Nasal Cannula 3 08/01/16 10:26 100 Nasal Cannula 3 08/01/16 09:34 65 24 114/74 100 Nasal Cannula 3 08/01/16 09:27 96.7 73 19 128/69 100 Physical Exam GENERAL: This is a well-nourished, well-developed patient, in no apparent distress. SKIN: No rashes, ecchymoses or lesions. Cool and dry. HEAD: Atraumatic. Normocephalic. No temporal or scalp tenderness. EYES: Pupils equal round and reactive. Extraocular motions intact. No scleral icterus. No injection or drainage. ENT: Nose without bleeding, purulent drainage or septal hematoma. Throat without erythema, tonsillar hypertrophy or exudate. Uvula midline. Airway patent. NECK: Trachea midline. No JVD or lymphadenopathy. Supple, nontender, no meningeal signs. CARDIOVASCULAR: Regular rate and rhythm without murmurs, gallops, or rubs. RESPIRATORY: Clear to auscultation. Breath sounds equal bilaterally. No wheezes , rales, or rhonchi. GASTROINTESTINAL: Abdomen soft, non-tender, nondistended. No hepato-splenomegaly , or palpable masses. No guarding. MUSCULOSKELETAL: Extremities without clubbing, cyanosis, or edema. No joint tenderness, effusion, or edema noted. No calf tenderness. Negative Homans sign bilaterally. NEUROLOGICAL: Awake, alert, oriented to self and place. Speech clear. Upper extremity strength, 5 out of 5. Lower extremity strength 4 out of 5. No sensory deficits. Laboratory Laboratory Tests Test 08/01/16 08/01/16 09:30 10:20 White Blood Count 5.1 Red Blood Count 4.01 Hemoglobin 12.0 Bedside Hemoglobin 11.9 Hematocrit 36.4 Bedside Hematocrit 35.0 Mean Corpuscular Volume 90.6 Mean Corpuscular Hemoglobin 29.9 Mean Corpuscular Hemoglobin 33.1 Concent Red Cell Distribution Width 16.5 Platelet Count 196 Mean Platelet Volume 8.0 Neutrophils (%) (Auto) 61.1 Lymphocytes (%) (Auto) 26.0 Monocytes (%) (Auto) 10.3 Eosinophils (%) (Auto) 1.9 Basophils (%) (Auto) 0.7 Neutrophils # (Auto) 3.1 Lymphocytes # (Auto) 1.3 Monocytes # (Auto) 0.5 Eosinophils # (Auto) 0.1 Basophils # (Auto) 0.0 CBC Comment DIFF FINAL Differential Comment Erythrocyte Sedimentation Rate 7 Prothrombin Time 11.2 Prothromb Time International 1.0 Ratio Activated Partial 23.8 Thromboplast Time Fibrinogen 261 Bedside Sodium 143 Bedside Potassium 3.8 Bedside Chloride 104 Bedside Blood Urea Nitrogen 18 Bedside Creatinine 0.5 Bedside Glucose 99 Total Creatine Kinase 67 Troponin I LESS THAN 0.02 Triglycerides Level 73 Cholesterol Level 215 LDL Cholesterol 123 HDL Cholesterol 77.0 Cholesterol/HDL Ratio 2.79 Vitamin B12 Level 534 Free Thyroxine 0.92 Thyroid Stimulating Hormone 0.684 3rd Gen Blood Type O NEGATIVE Antibody Screen NEGATIVE Blood Bank Comment Urine Color YELLOW Urine Turbidity CLEAR Urine pH 5.5 Urine Specific [place] 1.028 Urine Protein TRACE Urine Glucose (UA) NEG Urine Ketones NEG Urine Occult Blood NEG Urine Nitrite NEG Urine Bilirubin NEG Urine Urobilinogen LESS THAN 2.0 Urine Leukocyte Esterase NEG Urine RBC 4 Urine WBC LESS THAN 1 Urine Squamous Epithelial <1 Cells Microscopic Urinalysis Comment Urine Opiates Screen NEG Urine Barbiturates Screen NEG Urine Amphetamines Screen NEG Urine Benzodiazepines Screen NEG Urine Cocaine Screen NEG Urine Cannabinoids Screen NEG Result Diagram: 08/01/16 0930 Imaging Last Impressions Head CTA 08/01/16 0950 Signed Impressions: Service Date/Time: July 09:56 - CONCLUSION: No large or central vessel occlusion identified. Shine Weiner MD Neck CTA 08/01/16 0944 Signed Impressions: Service Date/Time: July 09:56 - CONCLUSION: 1. Minimal stenosis in the carotid bulb on the right. No hemodynamically significant lesion is identified. 2. Degenerative changes in the cervical spine. Shine Weiner MD Head CT 08/01/16 0000 Signed Impressions: Service Date/Time: July 09:44 - CONCLUSION: Cerebral white matter disease characteristic of the patient's history of multiple sclerosis. No evidence of significant interval change, acute infarct, hemorrhage or mass effect. Dyllan Zuñiga MD Carotid Artery Ultrasound 08/01/16 0000 Signed Impressions: Service Date/Time: July 14:32 - CONCLUSION: 1. No hemodynamically significant stenosis. Cooper Kelly MD Assessment and Plan Problem List: (1) Altered mental status (2) Hx of multiple sclerosis (3) Bipolar disorder (4) Dementia (5) COPD (chronic obstructive pulmonary disease) Assessment and Plan Admit to Dr. Alexander 71 year with dementia, COPD, MS. Brought in for altered mental status, with left sided weakness. Patient now back to baseline, does not recall events. No focal deficits. -Continue with neuro checks Continue normal saline at [address] Thompson has evaluated patient, input appreciated. Neuro workup in progress -Echo pending. Carotid ultrasound results noted, no stenosis. Continue with aspirin 325 mg by mouth twice a day Lipid profile done, results noted. Start Lipitor 20 mg po q hs. LFTs in am -PT evaluation Dementia -Continue home meds COPD, stable -Duonebs -Continue Symbicort and Spiriva Hx MS -stable, monitor Bipolar disorder, stable -Continue home meds Home medications reviewed and initiated as indicated. SCDs/Heparin for DVT prophylaxis PT for evaluation and treatment Plan of care discussed with attending, RN. Further management of the patient will be dependent on the hospital course. This patient was seen by myself and Dr. Alexander, this H/P is written on his behalf. Problem Qualifiers (1) Altered mental status: Qualified Code: R40.4 - Transient alteration of awareness (2) Bipolar disorder: Qualified Code: F31.9 - Bipolar affective disorder, remission status unspecified (3) Dementia: Qualified Code: F03.90 - Dementia without behavioral disturbance, unspecified dementia type (4) COPD (chronic obstructive pulmonary disease): Qualified Code: J44.9 - Chronic obstructive pulmonary disease, unspecified COPD type Pili Gonzalez Aug 01, 2016 16:41
[2016-08-01] MEDS ORDERED: RESP: ALBUTEROL 2.5 MG/IPRATROPIUM 0.5 MG NEB (PRN) NEB (17:30)
--- NOTE | 2016-08-01 17:31 | RADRPT ---
EXAM DATE/TIME: 08/01/2016 17:05 [facility] COMPARISON: CHEST SINGLE AP, April 22, 2016, 17:24. INDICATIONS : Congestion. MEDICAL HISTORY : Unobtainable. SURGICAL HISTORY : Unobtainable. ENCOUNTER: Initial ACUITY: 1 day PAIN SCORE: 0/10 LOCATION: Bilateral chest FINDINGS: The heart is enlarged. There are chronic appearing interstitial changes within the pulmonary parenchy ma. These are stable compared to prior exam dated 04/22/16. The visualized bony structures are grossly intact. CONCLUSION: No acute cardiopulmonary findings. Shine Weiner MD on August 01, 2016 at 17:28 Board Certified Radiologist. This report was verified electronically.
--- NOTE | 2016-08-01 17:34 | RADRPT ---
EXAM DATE/TIME: 08/01/2016 16:13 [facility] COMPARISON: No previous studies available for comparison. INDICATIONS : Hemiparesis. Left sided weakness. CONTRAST: 13 cc Omniscan (gadodiamide) IV MEDICAL HISTORY : Chronic obstructive pulmonary disease. SURGICAL HISTORY : Tubal ligation. ENCOUNTER: Initial ACUITY: 1 day PAIN SCORE: 0/10 LOCATION: Head. TECHNIQUE: Multiplanar, multisequence MRI of the brain was performed both prior to and following the administrat ion of paramagnetic contrast. FINDINGS: CEREBRUM: The ventricles are normal for age. No evidence of midline shift, mass lesion, hemorrhage or acute in farction. No extraaxial fluid collections are seen. The pituitary gland and suprasellar cistern are normal in configuration. WHITE MATTER: There is diffuse T2 signal in the periventricular white matter most consistent with moderate microvas cular ischemic demyelinative change. POSTERIOR FOSSA: The cerebellum and brainstem are intact. The 4th ventricle is midline. The cerebellopontine angle is unremarkable. The cerebellar tonsils are normal in position. DIFFUSION IMAGING: No focal areas of restricted diffusion are seen. No evidence of acute infarction. EXTRACRANIAL: The visualized portions of the orbits and paranasal sinuses are unremarkable. POST-CONTRAST: No abnormal areas of parenchymal or dural enhancement. No evidence of blood-brain barrier breakdown. CONCLUSION: 1. Cortical atrophy and microvascular ischemic demyelinative change. No acute abnormality identified. Shine Weiner MD on August 01, 2016 at 17:29 Board Certified Radiologist. This report was verified electronically.
[2016-08-01] MEDS: DONEPEZIL HCL 23 MG TAB PO SCH (21:00)
[2016-08-01] MEDS: ATORVASTATIN 20 MG TAB PO SCH (21:00)
[2016-08-01] MEDS: OXYBUTYNIN CHLORIDE 5 MG TAB PO SCH (21:00)
[2016-08-01] MEDS: BUDESONIDE-FORMOTEROL 160/4.5 MCG INHALER INH SCH (21:00)
[2016-08-01] MEDS: OXcarbazepine 300 MG TAB PO SCH (21:00)
[2016-08-02] VITALS (11 sets, daily range): BP systolic 118–131; BP diastolic 57–92; PULSE 54–77; RESP 12–20; TEMP 97.4–98.3; O2SAT 94–100
[2016-08-02] MEDS: SODIUM CHLOR 0.9% 1000 ML INJ 1,000 ML IV SCH ×2 (01:47→13:03)
[2016-08-02] MEDS: LEVOTHYROXINE SODIUM 100 MCG VIAL IV PUSH SCH (05:59)
[2016-08-02] MEDS ORDERED: LEVOTHYROXINE SODIUM 50 MCG TAB PO SCH (06:00)
--- NOTE | 2016-08-02 07:52 | HHI.PR ---
Subjective Remarks pt. anxious, doesn't know where she is demented noted with dysarthric speech following simple commands no unilateral weakness oriented to self, knows she is in a hospital. Able to provide daughter's name failed speech eval. Objective Objective Results - Vital Signs Date Time Temp Pulse Resp B/P Pulse Ox O2 Delivery O2 Flow Rate FiO2 08/02/16 07:44 97.5 58 16 118/57 100 08/02/16 07:00 68 08/02/16 04:00 97.8 57 20 121/67 100 08/02/16 02:06 54 08/02/16 00:00 97.6 63 18 131/71 100 08/01/16 22:40 98 Nasal Cannula 2.00 08/01/16 19:31 86 18 118/60 100 Nasal Cannula 2 08/01/16 18:26 71 15 111/56 97 Nasal Cannula 3 08/01/16 16:51 61 14 116/58 96 Nasal Cannula 3 08/01/16 13:49 61 16 134/67 96 Nasal Cannula 3 08/01/16 12:07 70 24 145/65 98 Nasal Cannula 3 08/01/16 10:26 100 Nasal Cannula 3 08/01/16 09:34 65 24 114/74 100 Nasal Cannula 3 08/01/16 09:27 96.7 73 19 128/69 100 Result Diagram: 08/01/16 0930 Imaging Last Impressions Head CTA 08/01/16 0950 Signed Impressions: Service Date/Time: July 09:56 - CONCLUSION: No large or central vessel occlusion identified. Shine Weiner MD Neck CTA 08/01/16 0944 Signed Impressions: Service Date/Time: July 09:56 - CONCLUSION: 1. Minimal stenosis in the carotid bulb on the right. No hemodynamically significant lesion is identified. 2. Degenerative changes in the cervical spine. Shine Weiner MD Head CT 08/01/16 0000 Signed Impressions: Service Date/Time: July 09:44 - CONCLUSION: Cerebral white matter disease characteristic of the patient's history of multiple sclerosis. No evidence of significant interval change, acute infarct, hemorrhage or mass effect. Dyllan Zuñiga MD Carotid Artery Ultrasound 08/01/16 0000 Signed Impressions: Service Date/Time: July 14:32 - CONCLUSION: 1. No hemodynamically significant stenosis. Cooper Kelly MD Other Results Laboratory Tests Test 08/01/16 08/01/16 09:30 10:20 White Blood Count 5.1 Red Blood Count 4.01 Hemoglobin 12.0 Bedside Hemoglobin 11.9 Hematocrit 36.4 Bedside Hematocrit 35.0 Mean Corpuscular Volume 90.6 Mean Corpuscular Hemoglobin 29.9 Mean Corpuscular Hemoglobin 33.1 Concent Red Cell Distribution Width 16.5 Platelet Count 196 Mean Platelet Volume 8.0 Neutrophils (%) (Auto) 61.1 Lymphocytes (%) (Auto) 26.0 Monocytes (%) (Auto) 10.3 Eosinophils (%) (Auto) 1.9 Basophils (%) (Auto) 0.7 Neutrophils # (Auto) 3.1 Lymphocytes # (Auto) 1.3 Monocytes # (Auto) 0.5 Eosinophils # (Auto) 0.1 Basophils # (Auto) 0.0 CBC Comment DIFF FINAL Differential Comment Erythrocyte Sedimentation Rate 7 Prothrombin Time 11.2 Prothromb Time International 1.0 Ratio Activated Partial 23.8 Thromboplast Time Fibrinogen 261 Bedside Sodium 143 Bedside Potassium 3.8 Bedside Chloride 104 Bedside Blood Urea Nitrogen 18 Bedside Creatinine 0.5 Bedside Glucose 99 Total Creatine Kinase 67 Troponin I LESS THAN 0.02 Triglycerides Level 73 Cholesterol Level 215 LDL Cholesterol 123 HDL Cholesterol 77.0 Cholesterol/HDL Ratio 2.79 Vitamin B12 Level 534 Free Thyroxine 0.92 Thyroid Stimulating Hormone 0.684 3rd Gen Blood Type O NEGATIVE Antibody Screen NEGATIVE Blood Bank Comment Urine Color YELLOW Urine Turbidity CLEAR Urine pH 5.5 Urine Specific [place] 1.028 Urine Protein TRACE Urine Glucose (UA) NEG Urine Ketones NEG Urine Occult Blood NEG Urine Nitrite NEG Urine Bilirubin NEG Urine Urobilinogen LESS THAN 2.0 Urine Leukocyte Esterase NEG Urine RBC 4 Urine WBC LESS THAN 1 Urine Squamous Epithelial <1 Cells Microscopic Urinalysis Comment Urine Opiates Screen NEG Urine Barbiturates Screen NEG Urine Amphetamines Screen NEG Urine Benzodiazepines Screen NEG Urine Cocaine Screen NEG Urine Cannabinoids Screen NEG ROS General: Other (12 point ros unable to obtain ) Physical Exam Physical Exam GENERAL: This is a well-nourished, well-developed patient, in no apparent distress. SKIN: No rashes, ecchymoses or lesions. Cool and dry. HEAD: Atraumatic. Normocephalic. No temporal or scalp tenderness. EYES: Pupils equal round and reactive. Extraocular motions intact. No scleral icterus. No injection or drainage. ENT: Nose without bleeding, purulent drainage or septal hematoma. Throat without erythema, tonsillar hypertrophy or exudate. Uvula midline. Airway patent. NECK: Trachea midline. No JVD or lymphadenopathy. Supple, nontender, no meningeal signs. CARDIOVASCULAR: Regular rate and rhythm without murmurs, gallops, or rubs. RESPIRATORY: Clear to auscultation. Breath sounds equal bilaterally. No wheezes , rales, or rhonchi. GASTROINTESTINAL: Abdomen soft, non-tender, nondistended. No hepato-splenomegaly , or palpable masses. No guarding. MUSCULOSKELETAL: Extremities without clubbing, cyanosis, or edema. No joint tenderness, effusion, or edema noted. No calf tenderness. Negative Homans sign bilaterally. NEUROLOGICAL: Awake, alert, oriented to self and place. Speech dysarthric today. Upper extremity strength, 5 out of 5. Lower extremity strength 4 out of 5. Demented. Anxious Urinary Catheter: No Vascular Central Line Catheter: No A/P Diagnosis: (1) Altered mental status (2) Hx of multiple sclerosis (3) Bipolar disorder (4) Dementia (5) COPD (chronic obstructive pulmonary disease) Assessment and Plan 71 year with dementia, COPD, MS. Brought in for altered mental status, with left sided weakness. Patient now back to baseline, does not recall events. No focal deficits. -Continue with neuro checks Continue normal saline at [address] Thompson has evaluated patient, input appreciated. Neuro workup in progress -Echo pending. Carotid ultrasound results noted, no stenosis. Continue with aspirin 325 mg by mouth twice a day Lipid profile done,continue Lipitor 20 mg po q hs. LFTs pending -PT evaluation -failed swallow eval. -today speech dysarthric, no focal deficits. Keep on bedrest for now, continue IVF -Keep NPO Dementia -Continue home meds COPD, stable -Duonebs -Continue Symbicort and Spiriva Hx MS -stable, monitor Bipolar disorder, stable -Continue home meds SCDs/Heparin for DVT prophylaxis PT for evaluation and treatment/OT/ST Continue with neuro work up D/W RN D/W Dr. Alexander This patient was seen by myself and Dr. Alexander, this note is written on his behalf. Problem Qualifiers (1) Altered mental status: Qualified Code: R40.4 - Transient alteration of awareness (2) Bipolar disorder: Qualified Code: F31.9 - Bipolar affective disorder, remission status unspecified (3) Dementia: Qualified Code: F03.90 - Dementia without behavioral disturbance, unspecified dementia type (4) COPD (chronic obstructive pulmonary disease): Qualified Code: J44.9 - Chronic obstructive pulmonary disease, unspecified COPD type Pili Gonzalez Aug 02, 2016 07:52
[2016-08-02 08:02] LABS: HDL CHOLESTEROL 75.7 MG/DL (40.0-60.0); INDIRECT BILIRUBIN 0.3 MG/DL (0.0-0.8); TOTAL BILIRUBIN ADULT 0.4 MG/DL (0.2-1.0)
--- NOTE | 2016-08-02 09:05 | HHI.PR ---
Subjective Remarks sr Objective Vital Signs Date Time Temp Pulse Resp B/P Pulse Ox O2 Delivery O2 Flow Rate FiO2 08/02/16 07:44 97.5 58 16 118/57 100 08/02/16 07:00 73 08/02/16 04:00 97.8 57 20 121/67 100 08/02/16 02:06 54 08/02/16 00:00 97.6 63 18 131/71 100 08/01/16 22:40 98 Nasal Cannula 2.00 08/01/16 19:31 86 18 118/60 100 Nasal Cannula 2 08/01/16 18:26 71 15 111/56 97 Nasal Cannula 3 08/01/16 16:51 61 14 116/58 96 Nasal Cannula 3 08/01/16 13:49 61 16 134/67 96 Nasal Cannula 3 08/01/16 12:07 70 24 145/65 98 Nasal Cannula 3 08/01/16 10:26 100 Nasal Cannula 3 08/01/16 09:34 65 24 114/74 100 Nasal Cannula 3 08/01/16 09:27 96.7 73 19 128/69 100 Result Diagram: 08/01/16 0930 Objective Remarks alert awake demented vff face sym moves all well inc lue Assessment and Plan Assessment and Plan imp mri neg ctax2 neg labs ok sr fu echo and if neg ok dc on statin and asa 81mg and fu dr ross o/p check eeg fu Neil Dale MD Aug 02, 2016 09:05
[2016-08-02] MEDS: OXYBUTYNIN CHLORIDE 5 MG TAB PO SCH ×2 (10:33→21:12)
[2016-08-02] MEDS: TIOTROPIUM BROMIDE 18 MCG INH INH SCH (10:33)
[2016-08-02] MEDS: CETIRIZINE HCL 10 MG TAB PO SCH (10:33)
[2016-08-02] MEDS: ASPIRIN EC 325 MG TABEC PO SCH (10:33)
[2016-08-02] MEDS: DONEPEZIL HCL 23 MG TAB PO SCH (10:33)
[2016-08-02] MEDS: OXcarbazepine 300 MG TAB PO SCH ×2 (10:34→21:11)
[2016-08-02] MEDS: MEMANTINE HCL 10 MG TAB PO SCH ×2 (10:34→21:12)
[2016-08-02] MEDS: BUDESONIDE-FORMOTEROL 160/4.5 MCG INHALER INH SCH ×2 (10:34→21:12)
[2016-08-02 14:49] LABS: RAPID PLASMA REAGIN SCREEN NON-REACTIVE (NON-REACTVE)
--- NOTE | 2016-08-02 16:19 | MG ---
cc: DEV KWON M.D. Lab No: [id number] Date: Age: 71 Sex: F Race: REFERRING: . ROOM: [facility]. With photic stimulation. Awake, drowsy study. MRI shows atrophy, no acute findings. Found slumped over at the table while eating and regaining consciousness confused and weak on the left side, mild headache and a history of bipolar, depression, and dementia. MEDICATIONS: He takes Zyrtec, Spiriva, Synthroid, Aricept, Trileptal, Lipitor, Symbicort. DESCRIPTION OF RECORD: There is some mild slowing predominately 6 Hz, 20 to 40 microvolts slowing. EKG is artifactual and cannot be interpreted. There is a lot of muscle artifact unfortunately as well. Eye movement. Apparently she tends to fall asleep. EKG looks like a bradycardia but difficult to tell in this one recording. Hyperventilation was not performed. Photic stimulation shows mild driving response. OVERALL IMPRESSION: There is mild slowing without any epileptic activity. Clinical correlation. MD RADHA Brand/GRACIE /2:27 PM /4:15 PM
--- NOTE | 2016-08-02 17:32 | ECHRPT ---
Indication: CVA/TIA CONCLUSIONS The left ventricular systolic function is low normal with an estimated ejection fraction in the rang e of 50- 55%. Trace mitral valve regurgitation. The aortic valve is not well visualized. Mild aortic valve regurgitation. There is mild tricuspid valve regurgitation. The estimated pulmonary arterial pressure is _31_ mmHg. IVC not seen BP: 128 / 69 HR: 73 Rhythm: Sinus MEASUREMENTS (Male / Female) Normal Values Technical Quality:Good 2D ECHO LV Diastolic Diameter PLAX 3.8 cm 4.2 - 5.9 / 3.9 - 5.3 cm LV Systolic Diameter PLAX 3.0 cm IVS Diastolic Thickness 1.1 cm 0.6 - 1.0 / 0.6 - 0.9 cm LVPW Diastolic Thickness 0.9 cm 0.6 - 1.0 / 0.6 - 0.9 cm LV Relative Wall Thickness 0.5 RV Internal Dim ED PLAX 2.8 cm M-MODE Aortic Root Diameter MM 3.5 cm LA Systolic Diameter MM 1.9 cm LA Ao Ratio MM 0.5 AV Cusp Separation MM 2.0 cm DOPPLER AI Peak Velocity 187.0 cm/s AI Peak Gradient 14.0 mmHg AI Pressure Half Time 865.0 ms LV E' Lateral Velocity 11.9 cm/s LV E' Septal Velocity 6.4 cm/s TR Peak Velocity 231.3 cm/s TR Peak Gradient 21.4 mmHg FINDINGS LEFT VENTRICLE Normal left ventricular size and wall thickness. The left ventricular systolic function is normal wi th an estimated ejection fraction in the range of 60-65%. Left ventricular diastolic function parameters a re normal. The left ventricular systolic function is low normal with an estimated ejection fraction in the rang e of 50- 55%. RIGHT VENTRICLE Normal right ventricular size and systolic function. LEFT ATRIUM The left atrial size is normal. RIGHT ATRIUM The right atrial size is normal. ATRIAL SEPTUM Normal atrial septal thickness without atrial level shunting by limited color doppler interrogation. AORTA The aortic root and proximal ascending aorta are normal in size on limited imaging. MITRAL VALVE Structurally normal mitral valve. Trace mitral valve regurgitation. AORTIC VALVE The aortic valve is not well visualized. Mild aortic valve regurgitation. TRICUSPID VALVE Structurally normal tricuspid valve. There is mild tricuspid valve regurgitation. The estimated pulmonary arterial pressure is _31_ mmHg. PULMONARY VALVE No pulmonary valve regurgitation or stenosis. VESSELS IVC not seen PERICARDIUM No pericardial effusion. Claus Burk MD, FACC, FSCAI (Electronically Signed) Final Date:02 August 2016 17:31
[2016-08-02] MEDS: ATORVASTATIN 20 MG TAB PO SCH (21:12)
[2016-08-03] VITALS (7 sets, daily range): BP systolic 115–127; BP diastolic 56–74; PULSE 55–74; RESP 17–21; TEMP 96.2–98.3; O2SAT 94–99
[2016-08-03] MEDS: SODIUM CHLOR 0.9% 1000 ML INJ 1,000 ML IV SCH ×2 (01:25→10:04)
[2016-08-03] MEDS: LEVOTHYROXINE SODIUM 100 MCG VIAL IV PUSH SCH (05:22)
[2016-08-03] MEDS: OXcarbazepine 300 MG TAB PO SCH ×2 (09:58→21:38)
[2016-08-03] MEDS: MEMANTINE HCL 10 MG TAB PO SCH ×2 (09:58→21:38)
[2016-08-03] MEDS: ASPIRIN EC 325 MG TABEC PO SCH (09:58)
[2016-08-03] MEDS: OXYBUTYNIN CHLORIDE 5 MG TAB PO SCH ×2 (09:59→21:38)
[2016-08-03] MEDS: CETIRIZINE HCL 10 MG TAB PO SCH (09:59)
[2016-08-03] MEDS: TIOTROPIUM BROMIDE 18 MCG INH INH SCH (10:05)
[2016-08-03] MEDS: BUDESONIDE-FORMOTEROL 160/4.5 MCG INHALER INH SCH ×2 (10:05→21:39)
--- NOTE | 2016-08-03 13:39 | HM ---
Date Performed: 08/01/2016 Time Performed: 19:54:00 HOOKUP DATE: 08/01/16 07:54:00 PM Beatriz ANALYSIS START TIME: 08/01/2016 7:59:00 PM ANALYSIS END TIME: 08/02/2016 7:17:59 PM PATIENT AGE: 71 PATIENT HEIGHT: 62 PATIENT WEIGHT: 145 DRUG LIST: room # 1512 PATIENT DIAGNOSIS: altered mental status TEST NARRATIVE: The patient's average heart rate was 64 BPM. Heart rates greater than 120 B PM were noted < 1% of the time. No episodes of bradycardia were noted. One pause of 2.0 seconds occurred at 05:18 AM. 6065 ventricular ectopics, which represented 7% of the total beat count, we re noted. The highest ventricular ectopic frequency occurred from 10:00 PM to 11:00 PM Beatriz. During this time 811 VE(s) occurred. Ventricular ectopics were observed as 6059 isolated beat(s) and as 1 c ouplet(s). No runs were noted. Some of the ventricular beats occurred in bigeminal cycles. 70 s upraventricular ectopics, which represented < 1% of the total beat count, were noted. The highest manzanares praventricular ectopic frequency occurred from 08:00 PM to 09:00 PM Beatriz. During this time 7 SVE(s) o ccurred. No episodes of ST depression (defined as -1.0 mm or more) were noted in channel 1. No e pisodes of ST depression (defined as -1.0 mm or more) were noted in channel 2. No episodes of ST dep ression (defined as -1.0 mm or more) were noted in channel 3. TEST INTERPRETATION: 1. PREDOMINANT UNDERLYING RHYTHM IS Sinus rhythm WITH AVERAGE HEART RATE IS 64 2. OCCASIONAL PREMATURE ATRIAL COMPLEXES AND OCCASIONAL PREMATURE VENT RICULAR COMPLEXES WERE NOTED 3. NO SIGNIFICANT TACHY OR CARLOS ARRHYTHMIAS NOTED 4. NO SIGNIFICANT JLUIS SES OF GREATER THAN 3 SECONDS NOTED 5. NO CARDIAC SYMPTOMS NOTED DURING THE RECORDED TIME INTERVAL Signed by : Kyle Perez
--- NOTE | 2016-08-03 13:56 | HHI.FF ---
Face to Face Verification Diagnosis: (1) Left arm weakness (2) TIA (transient ischemic attack) (3) COPD (chronic obstructive pulmonary disease) (4) Bipolar disorder (5) Dementia (6) Altered mental status (7) Hx of multiple sclerosis Physical Therapy Order: Evaluate and Treat Speech Therapy Order: To Improve: Speech and communication skills, Swallowing Home Health Nursing Order: Medical education Nursing assessment with vital signs I have seen patient Sophia Mcintyre on 08/03/16. My clinical findings support the need for the requested home health care services because: Deconditioned w/ increased weakness Need for psychosocial assistance Impaired cognition/judgement I certify that my clinical findings support that this patient is homebound because: Impaired cognitive ability/safety Need for psychosocial assistance Pili Gonzalez [facility] Aug 03, 2016 13:56
[2016-08-03] MEDS ORDERED: ASPI325T33 PO (13:59)
[2016-08-03] MEDS ORDERED: ATOR20TA15 PO (13:59)
--- NOTE | 2016-08-03 14:00 | HHI.DCPOC ---
Discharge Care Plan Diagnosis: (1) COPD (chronic obstructive pulmonary disease) (2) Bipolar disorder (3) Dementia (4) Altered mental status (5) Hx of multiple sclerosis (6) TIA (transient ischemic attack) (7) Left arm weakness Your Health Problems Are: Difficulty with ADL Goals to Promote Your Health * To prevent worsening of your condition and complications * To maintain your health at the optimal level Directions to Meet Your Goals Take your medications as prescribed Follow your dietary instruction Follow activity as directed Keep your appointments as scheduled Take your immunizations and boosters as scheduled If your symptoms worsen call your PCP, if no PCP go to Urgent Care Center or Emergency Room Smoking is Dangerous to Your Health. Avoid second hand smoke Call the 24-hour hour crisis hotline for domestic abuse at Pili Gonzalez Aug 03, 2016 14:00
--- NOTE | 2016-08-03 15:12 | HHI.PR ---
Subjective Remarks oriented to hospital, self speech same, dysarthric, nasal voice difficult to obtain ROS Objective Objective Results - Vital Signs Date Time Temp Pulse Resp B/P Pulse Ox O2 Delivery O2 Flow Rate FiO2 08/03/16 12:00 97.4 64 18 115/56 94 08/03/16 11:41 55 08/03/16 08:05 96.6 74 17 127/68 94 08/03/16 04:25 97.6 63 18 120/72 98 08/03/16 01:19 97.7 62 20 115/62 98 08/02/16 23:15 63 08/02/16 21:29 94 08/02/16 20:00 97.7 61 18 122/64 96 08/02/16 20:00 97.7 61 18 122/64 96 08/02/16 15:33 98.3 70 15 124/58 100 I/O 08/02/16 08/02/16 08/02/16 08/03/16 08/03/16 08/03/16 07:00 15:00 23:00 07:00 15:00 23:00 Intake Total 525 ml Balance 525 ml Intake IV Total 525 ml Result Diagram: 08/01/16 0930 Imaging Last Impressions Head CTA 08/01/16 0950 Signed Impressions: Service Date/Time: July 09:56 - CONCLUSION: No large or central vessel occlusion identified. Shine Weiner MD Neck CTA 08/01/16 0944 Signed Impressions: Service Date/Time: July 09:56 - CONCLUSION: 1. Minimal stenosis in the carotid bulb on the right. No hemodynamically significant lesion is identified. 2. Degenerative changes in the cervical spine. Shine Weiner MD Head CT 08/01/16 0000 Signed Impressions: Service Date/Time: July 09:44 - CONCLUSION: Cerebral white matter disease characteristic of the patient's history of multiple sclerosis. No evidence of significant interval change, acute infarct, hemorrhage or mass effect. Dyllan Zuñiga MD Carotid Artery Ultrasound 08/01/16 0000 Signed Impressions: Service Date/Time: July 14:32 - CONCLUSION: 1. No hemodynamically significant stenosis. Cooper Kelly MD ROS General: Other (unable to obtain ROS) Physical Exam Physical Exam GENERAL: This is a well-nourished, well-developed patient, in no apparent distress. SKIN: No rashes, ecchymoses or lesions. Cool and dry. HEAD: Atraumatic. Normocephalic. No temporal or scalp tenderness. EYES: Pupils equal round and reactive. Extraocular motions intact. No scleral icterus. No injection or drainage. ENT: Nose without bleeding, purulent drainage or septal hematoma. Throat without erythema, tonsillar hypertrophy or exudate. Uvula midline. Airway patent. NECK: Trachea midline. No JVD or lymphadenopathy. Supple, nontender, no meningeal signs. CARDIOVASCULAR: Regular rate and rhythm without murmurs, gallops, or rubs. RESPIRATORY: Clear to auscultation. Breath sounds equal bilaterally. No wheezes , rales, or rhonchi. GASTROINTESTINAL: Abdomen soft, non-tender, nondistended. No hepato-splenomegaly , or palpable masses. No guarding. MUSCULOSKELETAL: Extremities without clubbing, cyanosis, or edema. No joint tenderness, effusion, or edema noted. No calf tenderness. Negative Homans sign bilaterally. NEUROLOGICAL: Awake, alert, oriented to self and place. Speech dysarthric today. Upper extremity strength, 5 out of 5. Lower extremity strength 4 out of 5. Demented. Anxious Urinary Catheter: No A/P Diagnosis: (1) Altered mental status (2) Hx of multiple sclerosis (3) Bipolar disorder (4) Dementia (5) COPD (chronic obstructive pulmonary disease) Assessment and Plan 71 year with dementia, COPD, MS. Brought in for altered mental status, with left sided weakness. Patient now back to baseline, does not recall events. No focal deficits. -Continue with neuro checks Continue normal saline at [address] Thompson has evaluated patient, input appreciated. Neuro workup in progress -Echo ok EF 50-55%. Carotid ultrasound results noted, no stenosis. -Holter reviewed, underlying rhythm SR. Continue with aspirin 325 mg by mouth twice a day Lipid profile done,continue Lipitor 20 mg po q hs. LFTs ok -PT evaluation -passed swallow eval, soft, honey thickened fluids -ok to dc, f/u neuro as OP Dementia -Continue home meds COPD, stable -Duonebs -Continue Symbicort and Spiriva Hx MS -stable, monitor Bipolar disorder, stable -Continue home meds SCDs/Heparin for DVT prophylaxis PT for evaluation and treatment/OT/ST stable, continue with asa and statins CM consult for DC planning, [facility] with PT/ST [facility]charge [facility] F/U neuro 2 weeks F/U PCP Diet -heart healthy Activity-as tolerated D/W RN D/W Dr. Alexander D/W CM D/W Pt This patient was seen by myself and Dr. Alexander, this note is written on his behalf. Discharge Planning 45 Problem Qualifiers (1) Altered mental status: Qualified Code: R40.4 - Transient alteration of awareness (2) Bipolar disorder: Qualified Code: F31.9 - Bipolar affective disorder, remission status unspecified (3) Dementia: Qualified Code: F03.90 - Dementia without behavioral disturbance, unspecified dementia type (4) COPD (chronic obstructive pulmonary disease): Qualified Code: J44.9 - Chronic obstructive pulmonary disease, unspecified COPD type Pili Gonzalez Aug 03, 2016 15:11
[2016-08-03] MEDS ORDERED: CLON.5 PO (15:55)
[2016-08-03] MEDS: ATORVASTATIN 20 MG TAB PO SCH (21:38)
[2016-08-03] MEDS: DONEPEZIL HCL 23 MG TAB PO SCH (21:38)
[2016-08-04] VITALS (7 sets, daily range): BP systolic 118–142; BP diastolic 52–80; PULSE 49–84; RESP 16–18; TEMP 95.8–97.9; O2SAT 96–98
[2016-08-04] MEDS: LEVOTHYROXINE SODIUM 100 MCG VIAL IV PUSH SCH (05:12)
[2016-08-04] MEDS: SODIUM CHLOR 0.9% 1000 ML INJ 1,000 ML IV SCH ×2 (05:13→17:28)
[2016-08-04] MEDS: CETIRIZINE HCL 10 MG TAB PO SCH (08:37)
[2016-08-04] MEDS: OXYBUTYNIN CHLORIDE 5 MG TAB PO SCH ×2 (08:38→20:17)
[2016-08-04] MEDS: ASPIRIN EC 325 MG TABEC PO SCH (08:38)
[2016-08-04] MEDS: MEMANTINE HCL 10 MG TAB PO SCH ×2 (08:38→20:17)
[2016-08-04] MEDS: OXcarbazepine 300 MG TAB PO SCH ×2 (08:38→20:17)
[2016-08-04] MEDS: BUDESONIDE-FORMOTEROL 160/4.5 MCG INHALER INH SCH ×2 (08:47→20:16)
[2016-08-04] MEDS: TIOTROPIUM BROMIDE 18 MCG INH INH SCH (08:48)
--- NOTE | 2016-08-04 11:54 | HHI.PR ---
Subjective Remarks sitting up in chair speech unchanged eating okay anxious, tearful asking about her daughter Objective Objective Results - Vital Signs Date Time Temp Pulse Resp B/P Pulse Ox O2 Delivery O2 Flow Rate FiO2 08/04/16 10:26 49 08/04/16 08:00 96.6 64 16 126/66 96 08/04/16 03:07 96.1 63 18 118/52 98 08/04/16 01:38 95.8 61 18 140/65 96 08/03/16 21:52 98.3 65 21 117/58 99 08/03/16 16:00 96.2 68 18 126/74 95 08/03/16 12:00 97.4 64 18 115/56 94 I/O 08/03/16 08/03/16 08/03/16 08/04/16 08/04/16 08/04/16 07:00 15:00 23:00 07:00 15:00 23:00 Intake Total 525 ml 240 ml 300 ml Balance 525 ml 240 ml 300 ml Intake Oral 240 ml IV Total 525 ml 300 ml # Voids 3 2 # Bowel Movements 0 Result Diagram: 08/01/16 0930 Imaging Last Impressions Head CTA 08/01/16 0950 Signed Impressions: Service Date/Time: July 09:56 - CONCLUSION: No large or central vessel occlusion identified. Shine Weiner MD Neck CTA 08/01/16 0944 Signed Impressions: Service Date/Time: July 09:56 - CONCLUSION: 1. Minimal stenosis in the carotid bulb on the right. No hemodynamically significant lesion is identified. 2. Degenerative changes in the cervical spine. Shine Weiner MD Head CT 08/01/16 0000 Signed Impressions: Service Date/Time: July 09:44 - CONCLUSION: Cerebral white matter disease characteristic of the patient's history of multiple sclerosis. No evidence of significant interval change, acute infarct, hemorrhage or mass effect. Dyllan Zuñiga MD Carotid Artery Ultrasound 08/01/16 0000 Signed Impressions: Service Date/Time: July 14:32 - CONCLUSION: 1. No hemodynamically significant stenosis. Cooper Kelly MD ROS General: Other (12 point ros difficult to obtain ) Physical Exam Physical Exam GENERAL: This is a well-nourished, well-developed patient, anxious SKIN: No rashes, ecchymoses or lesions. Cool and dry. HEAD: Atraumatic. Normocephalic. No temporal or scalp tenderness. EYES: Pupils equal round and reactive. Extraocular motions intact. No scleral icterus. No injection or drainage. ENT: Nose without bleeding, purulent drainage or septal hematoma. Throat without erythema, tonsillar hypertrophy or exudate. Uvula midline. Airway patent. NECK: Trachea midline. No JVD or lymphadenopathy. Supple, nontender, no meningeal signs. CARDIOVASCULAR: Regular rate and rhythm without murmurs, gallops, or rubs. RESPIRATORY: Clear to auscultation. Breath sounds equal bilaterally. No wheezes , rales, or rhonchi. GASTROINTESTINAL: Abdomen soft, non-tender, nondistended. No hepato-splenomegaly , or palpable masses. No guarding. MUSCULOSKELETAL: Extremities without clubbing, cyanosis, or edema. No joint tenderness, effusion, or edema noted. No calf tenderness. Negative Homans sign bilaterally. NEUROLOGICAL: Awake, alert, oriented to self and place. Speech dysarthric today. Demented. Anxious and tearful Urinary Catheter: No Vascular Central Line Catheter: No A/P Diagnosis: (1) Altered mental status (2) Hx of multiple sclerosis (3) Bipolar disorder (4) Dementia (5) COPD (chronic obstructive pulmonary disease) Assessment and Plan 71 year with dementia, COPD, MS. Brought in for altered mental status, with left sided weakness. Patient now back to baseline, does not recall events. No focal deficits. -Continue with neuro checks Continue normal saline at [address] Thompson has evaluated patient, input appreciated. Neuro workup in progress -Echo ok EF 50-55%. Carotid ultrasound results noted, no stenosis. -Holter reviewed, underlying rhythm SR. Continue with aspirin 325 mg by mouth twice a day Lipid profile done,continue Lipitor 20 mg po q hs. LFTs ok -PT evaluation -passed swallow eval, soft, honey thickened fluids -ok to dc, f/u neuro as OP Dementia -Continue home meds COPD, stable -Duonebs -Continue Symbicort and Spiriva Hx MS -stable, monitor Bipolar disorder, stable -Continue home meds SCDs/Heparin for DVT prophylaxis PT for evaluation and treatment/OT/ST stable, continue with asa and statins CM consult for DC planning, HHC with PT/ST Discharge to [facility], on hold at this time as facility wants to evaluate before accepting. They may not be able to meet her needs CM provided list of SNFs D/W daughter, if [facility] won't accept, wants SNF with potential for LTC/dementia unit pt. has been declining. F/U neuro 2 weeks F/U PCP Diet -heart healthy Activity-as tolerated D/W RN D/W Dr. Alexander D/W CM D/W Pt This patient was seen by myself and Dr. Alexander, this note is written on his behalf. Discharge Planning 45 Problem Qualifiers (1) Altered mental status: Qualified Code: R40.4 - Transient alteration of awareness (2) Bipolar disorder: Qualified Code: F31.9 - Bipolar affective disorder, remission status unspecified (3) Dementia: Qualified Code: F03.90 - Dementia without behavioral disturbance, unspecified dementia type (4) COPD (chronic obstructive pulmonary disease): Qualified Code: J44.9 - Chronic obstructive pulmonary disease, unspecified COPD type Pili Gonzalez Aug 04, 2016 11:54
[2016-08-04] MEDS: DONEPEZIL HCL 23 MG TAB PO SCH (20:17)
[2016-08-04] MEDS: ATORVASTATIN 20 MG TAB PO SCH (20:17)
[2016-08-05] VITALS (8 sets, daily range): BP systolic 68–129; BP diastolic 60–77; PULSE 53–85; RESP 18–20; TEMP 96.1–97.3; O2SAT 95–97
[2016-08-05] MEDS: LEVOTHYROXINE SODIUM 100 MCG VIAL IV PUSH SCH (05:53)
--- NOTE | 2016-08-05 08:02 | HHI.PR ---
Subjective Remarks sr Objective Vital Signs Date Time Temp Pulse Resp B/P Pulse Ox O2 Delivery O2 Flow Rate FiO2 08/05/16 06:39 96.3 66 18 129/77 95 08/05/16 01:03 97.3 68 18 128/60 96 08/05/16 00:45 85 08/04/16 21:53 97.7 64 18 142/65 97 08/04/16 16:00 96.5 64 17 134/80 97 08/04/16 12:00 97.9 84 17 123/72 96 08/04/16 10:26 49 I/O 08/04/16 08/04/16 08/04/16 08/05/16 08/05/16 08/05/16 07:00 15:00 23:00 07:00 15:00 23:00 Intake Total 375 ml 855 ml Balance 375 ml 855 ml Intake Oral 480 ml IV Total 375 ml 375 ml # Voids 2 4 # Bowel Movements 0 Result Diagram: 08/01/16 0930 Objective Remarks alert awake demented vff face sym moves all well inc lue no change Assessment and Plan Assessment and Plan imp mri neg ctax2 neg labs ok sr fu echo nl check eeg nl fu holter nl ok dc on statin and asa 81mg and fu dr ross o/p i will signoff Neil Thompson MD Aug 05, 2016 08:02
[2016-08-05] MEDS: MEMANTINE HCL 10 MG TAB PO SCH ×2 (08:36→22:17)
[2016-08-05] MEDS: OXYBUTYNIN CHLORIDE 5 MG TAB PO SCH ×2 (08:36→22:19)
[2016-08-05] MEDS: ASPIRIN EC 325 MG TABEC PO SCH (08:36)
[2016-08-05] MEDS: OXcarbazepine 300 MG TAB PO SCH ×2 (08:36→22:18)
[2016-08-05] MEDS: CETIRIZINE HCL 10 MG TAB PO SCH (08:36)
[2016-08-05] MEDS: SODIUM CHLOR 0.9% 1000 ML INJ 1,000 ML IV SCH ×2 (08:46→20:55)
[2016-08-05] MEDS: TIOTROPIUM BROMIDE 18 MCG INH INH SCH (09:00)
[2016-08-05] MEDS: BUDESONIDE-FORMOTEROL 160/4.5 MCG INHALER INH SCH (09:00)
--- NOTE | 2016-08-05 11:58 | HHI.PR ---
Subjective Remarks Resting in bed Awake States she is not coughing when she eats No shortness of breath no rhonchi noted Speech therapy in room 2 eval and treat Vital signs normal trends (Jazmine Amador) Objective Objective Results - Vital Signs Date Time Temp Pulse Resp B/P Pulse Ox O2 Delivery O2 Flow Rate FiO2 08/05/16 08:04 96.3 53 20 126/60 96 08/05/16 06:39 96.3 66 18 129/77 95 08/05/16 01:03 97.3 68 18 128/60 96 08/05/16 00:45 85 08/04/16 21:53 97.7 64 18 142/65 97 08/04/16 16:00 96.5 64 17 134/80 97 08/04/16 12:00 97.9 84 17 123/72 96 I/O 08/04/16 08/04/16 08/04/16 08/05/16 08/05/16 08/05/16 07:00 15:00 23:00 07:00 15:00 23:00 Intake Total 375 ml 855 ml 200 ml Balance 375 ml 855 ml 200 ml Intake Oral 480 ml IV Total 375 ml 375 ml 200 ml # Voids 2 4 # Bowel Movements 0 (Jazmine Amador) Result Diagram: 08/01/16 0930 ROS General: Weakness (generalized), Other (10 point ROS done positives noted but limited information secondary to her dementia) HEENT: Dysphagia (ST eval, currently on nectar thick liquids) Pulmonary: Cough (none she states) Neuro/MS: Other (pleasant confusion) (Jazmine Amador) Physical Exam Physical Exam PHYSICAL EXAMINATION GENERAL: This is a thin elderly female who appears to be in no acute distress. She is alert and awake resting in bed HEAD: Normocephalic OROPHARYNGEAL: Oropharynx clear without rhonchi NECK: Supple. CARDIAC: Irregular rhythm, labile rate between 53 and 85 over the past 24 hours S1 and S2 are heard. LUNGS: Clear to auscultation without any acute rhonchi noted. ABDOMEN: Soft, nontender, bowel sounds active EXTREMITIES: no edema. Pulses intact NEUROLOGICAL: Patient mood and affect appropriate without any acute anxiety noted . 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 Brought in for altered mental status, with left sided weakness. Patient now back to baseline, does not recall events. neuro checks, essentially unchanged and uneventful Dr. Thompson has evaluated patient, input appreciated. EEG and Holter monitor normal limits, probable TIA -Echo ok EF 50-55%. Carotid ultrasound results noted, no stenosis. -Holter reviewed, underlying rhythm SR. We'll follow as an outpatient -PT, plan for rehabilitation, short-term and return to [facility] in room to eval and treat, patient currently on nectar thick liquids, no cough no rhonchi noted. Will eval needs for any further testing per their expert opinion so patient is safe with her eating and can return back to her previous setting after some strengthening Discussed with case management Ivet and Dementia -Continue home meds COPD, stable Hx MS -stable, monitor Bipolar disorder, stable -Continue home meds SCDs/Heparin for DVT prophylaxis PT for evaluation and treatment/OT/ST stable, continue with asa and statins CM plan for rehabilitation short-term, SNF, ST to make recommendations on patient's swallow and eating needs F/U neuro 2 weeks, outpatient F/U PCP Diet -heart healthy Activity-as tolerated D/W RN D/W Dr. 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 HOpefully to snf tomorrow (Rahel Thomas MD ) Jazmine Amador Aug 05, 2016 11:58 Rahel Thomas MD Aug 05, 2016 14:16
[2016-08-05] MEDS: ATORVASTATIN 20 MG TAB PO SCH (22:19)
[2016-08-05] MEDS: DONEPEZIL HCL 23 MG TAB PO SCH (22:23)
[2016-08-06 00:20] VITALS: BP 124/71; PULSE 61; RESP 20; TEMP 96.6; O2SAT 93
[2016-08-06] MEDS: BUDESONIDE-FORMOTEROL 160/4.5 MCG INHALER INH SCH ×2 (00:22→09:08)
[2016-08-06 05:57] VITALS: BP 124/77; PULSE 73; RESP 20; TEMP 97.2; O2SAT 93
[2016-08-06] MEDS: LEVOTHYROXINE SODIUM 100 MCG VIAL IV PUSH SCH (06:16)
[2016-08-06 08:14] VITALS: BP 117/67; PULSE 66; RESP 19; TEMP 97.6; O2SAT 95
[2016-08-06] MEDS: MEMANTINE HCL 10 MG TAB PO SCH (08:58)
[2016-08-06] MEDS: ASPIRIN EC 325 MG TABEC PO SCH (08:58)
[2016-08-06] MEDS: CETIRIZINE HCL 10 MG TAB PO SCH (08:58)
[2016-08-06] MEDS: OXYBUTYNIN CHLORIDE 5 MG TAB PO SCH (08:59)
[2016-08-06] MEDS: SODIUM CHLOR 0.9% 1000 ML INJ 1,000 ML IV SCH (09:00)
[2016-08-06] MEDS: TIOTROPIUM BROMIDE 18 MCG INH INH SCH (09:00)
[2016-08-06] MEDS: OXcarbazepine 300 MG TAB PO SCH (09:02)
--- NOTE | 2016-08-06 09:03 | HHI.PR ---
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 about dc planning for snf today dw edi specialist about plan of care explained to pt (Rahel Thomas MD) Objective Objective Results - Vital Signs Date Time Temp Pulse Resp B/P Pulse Ox O2 Delivery O2 Flow Rate FiO2 08/06/16 08:14 97.6 66 19 117/67 95 08/06/16 05:57 97.2 73 20 124/77 93 08/06/16 00:20 96.6 61 20 124/71 93 08/05/16 20:43 96.5 57 20 120/69 95 08/05/16 16:42 96.1 60 20 68/ 97 08/05/16 12:57 53 08/05/16 12:42 96.3 63 20 128/66 96 I/O 08/05/16 08/05/16 08/05/16 08/06/16 08/06/16 08/06/16 07:00 15:00 23:00 07:00 15:00 23:00 Intake Total 200 ml 330 ml Balance 200 ml 330 ml Intake Oral 330 ml IV Total 200 ml # Voids 1 (Jazmine Amador) Medications and IVs Administered Medications Medications (Trade) Dose Ordered Sig/Erica Route PRN Reason Start Time Stop Time Status Last Admin Dose Admin Sodium Chloride (NS 1000 ml Inj) 1,000 ml @ 75 mls/hr [id number] IV 08/01/16 10:15 08/05/16 20:55 Aspirin (Ecotrin Ec) 325 mg DAILY PO 08/01/16 10:15 08/05/16 08:36 Budesonide/ Formoterol Fumarate (Symbicort 160-4.5 Inh) 2 puff BID INH 08/01/16 21:00 08/06/16 00:22 Cetirizine HCl (ZyrTEC) 10 mg DAILY PO 08/02/16 09:00 08/05/16 08:36 Donepezil HCl (Aricept) 23 mg HS PO 08/01/16 21:00 08/05/16 22:23 Oxcarbazepine (Trileptal) 300 mg BID PO 08/01/16 21:00 08/05/16 22:18 Oxybutynin Chloride (Ditropan) 5 mg BID PO 08/01/16 21:00 08/05/16 22:19 Tiotropium Plessis (Spiriva Inh) 18 mcg DAILY INH 08/02/16 09:00 08/02/16 10:33 Memantine (Namenda) 10 mg BID PO 08/02/16 09:00 08/05/16 22:17 Atorvastatin Calcium (Lipitor) 20 mg HS PO 08/01/16 21:00 08/05/16 22:19 Levothyroxine Sodium (Synthroid Inj) 25 mcg DAILY@06 IV PUSH 08/02/16 06:00 08/06/16 06:16 (Jazmine Amador) ROS General: Other HEENT: Dysphagia, Other GI: BM (Jazmine Amador) Physical Exam Physical Exam PHYSICAL EXAMINATION GENERAL: This is a thin elderly female who appears to be in no acute distress. She is awake, pleasant confusion HEAD: Normocephalic, atraumatic OROPHARYNGEAL: Oropharynx clear NECK: Supple. Trachea midline without deviation. CARDIAC: Regular rhythm, regular rate, S1 and S2 are heard. LUNGS: Clear to auscultation bilaterally. Volumes adequate ABDOMEN: Soft, nontender, bowel sounds active EXTREMITIES: no edema. Pulses intact NEUROLOGICAL: Patient mood without anxiety. Pleasant confusion SKIN:Warm and moist (Jazmine Amador) A/P Assessment and Plan (1) Altered mental status (2) Hx of multiple sclerosis (3) Bipolar disorder (4) Dementia (5) COPD (chronic obstructive pulmonary disease) Assessment and Plan neuro checks, stable Dr. Thompson has evaluated patient, input appreciated. EEG and Holter monitor normal limits, probable TIA -Echo ok EF 50-55%. Carotid ultrasound results noted, no stenosis. -Holter reviewed, underlying rhythm SR. We'll follow as an outpatient Dysphasia, ST re eval and check patient yesterday for swallow. Graduated up to see and liquids soft diet, but does recommend patient continue with ST therapy. Patient needs cueing during her meal. No cough noted -PT, plan for rehabilitation, short-term and return to [facility] Dementia -Continue home meds COPD, stable Hx MS -stable, monitor Bipolar disorder, stable -Continue home meds SCDs/Heparin for DVT prophylaxis PT for evaluation and treatment/OT/ST Discharge planning, working on discharge today, 3008 on chart with recommendations of PT OT and ST. CM plan for rehabilitation short-term, SNF, Then should be able to return to her [facility]. F/U neuro 2 weeks, outpatient F/U PCP D/W RN D/W Dr. Thomas, seen on his behalf D/W CM , (Jazmine Amador) Jazmine Amador Aug 06, 2016 09:03 Rahel Thomas MD Aug 06, 2016 09:56
[2016-08-06 10:39] VITALS: PULSE 56
[2016-08-06 12:10] VITALS: BP 122/72; PULSE 75; RESP 17; TEMP 97.2; O2SAT 98
[2016-08-06] MEDS ORDERED: MAGNESIUM HYDROXIDE SUSP 30 ML CUP PO ONE (13:45)
--- NOTE | 2016-08-06 15:01 | HHI.DS ---
Discharge Summary Admission Date Aug 03, 2016 at 15:43 Discharge Date: Aug 06, 2016 Admitting Diagnosis ams CONFUSION LEFT SIDED WEAKNESS (1) Altered mental status Diagnosis: Principal (2) Hx of multiple sclerosis Diagnosis: Secondary (3) Bipolar disorder Diagnosis: Secondary (4) Dementia Diagnosis: Secondary (5) COPD (chronic obstructive pulmonary disease) Diagnosis: Secondary (6) TIA (transient ischemic attack) Diagnosis: Principal Brief History This was a 71-year-old female with a history of COPD, dementia, MS brought to the emergency department from her fdc facility [facility] as a stroke alert. Patient was evaluated in the emergency room, she was asking what is she doing here. She knew she was in a hospital. Per ER report, patient was slumped over the table while eating, when she regained consciousness she appeared confused and weak on the left side. She was last seen normal around 8 AM, placed hours prior to arrival. Patient did complain of a mild headache. Patient was unable to recall event when discussed with her. She denied any chest pain, no shortness of breath. Patient has history of dementia and appears to be at baseline. She was last admitted under our services in April for pneumonia. She had no focal deficits, equal upper extremity strength 5 out of 5. Speech was clear. Oriented to self and place. Laboratory workup completed unremarkable. Imaging studies negative for acute CVA. She had been given aspirin. Patient was admitted for further evaluation and treatment. Imaging Administered Medications Medications (Trade) Dose Ordered Sig/Erica Route PRN Reason Start Time Stop Time Status Last Admin Dose Admin Sodium Chloride (NS 1000 ml Inj) 1,000 ml @ 75 mls/hr [id number] IV 08/01/16 10:15 08/06/16 09:00 Aspirin (Ecotrin Ec) 325 mg DAILY PO 08/01/16 10:15 08/06/16 08:58 Budesonide/ Formoterol Fumarate (Symbicort 160-4.5 Inh) 2 puff BID INH 08/01/16 21:00 08/06/16 09:08 Cetirizine HCl (ZyrTEC) 10 mg DAILY PO 08/02/16 09:00 08/06/16 08:58 Donepezil HCl (Aricept) 23 mg HS PO 08/01/16 21:00 08/05/16 22:23 Oxcarbazepine (Trileptal) 300 mg BID PO 08/01/16 21:00 08/06/16 09:02 Oxybutynin Chloride (Ditropan) 5 mg BID PO 08/01/16 21:00 08/06/16 08:59 Tiotropium [place] (Spiriva Inh) 18 mcg DAILY INH 08/02/16 09:00 08/02/16 10:33 Memantine (Namenda) 10 mg BID PO 08/02/16 09:00 08/06/16 08:58 Atorvastatin Calcium (Lipitor) 20 mg HS PO 08/01/16 21:00 08/05/16 22:19 Levothyroxine Sodium (Synthroid Inj) 25 mcg DAILY@06 IV PUSH 08/02/16 06:00 08/06/16 06:16 PE at Discharge GENERAL: This is a thin elderly female who appears to be in no acute distress. She is awake, pleasant confusion HEAD: Normocephalic, atraumatic OROPHARYNGEAL: Oropharynx clear NECK: Supple. Trachea midline without deviation. CARDIAC: Regular rhythm, regular rate, S1 and S2 are heard. LUNGS: Clear to auscultation bilaterally. Volumes adequate ABDOMEN: Soft, nontender, bowel sounds active EXTREMITIES: no edema. Pulses intact NEUROLOGICAL: Patient mood without anxiety. Pleasant confusion Hospital Course These are the diagnoses that were used to treat this patient during this brief hospital stay and for her plan of care (1) Altered mental status (2) Hx of multiple sclerosis (3) Bipolar disorder (4) Dementia (5) COPD (chronic obstructive pulmonary disease) Assessment and Plan neuro checks were checked throughout her hospital stay and remained stable Dr. Thompson has evaluated patient, input appreciated. Patient had multiple testing which included EEG and Holter monitor normal limits , at this time he feels her diagnosis was probable TIA rather than CVA -Echo done this admission , ok EF 50-55%. Carotid ultrasound results noted, no stenosis. -Holter reviewed, underlying rhythm SR. We'll follow as an outpatient appointment and when necessary if patient has any further symptoms Dysphasia, patient was initially evaluated for swallow early in her admission due to the fact that she was eating when she initially had symptoms . Patient was initially placed on nectar thick liquids and monitored for possible aspiration . Speech therapy followed patient throughout her hospital stay and reevaluated her on day before discharge to see what kind of progress she had made. Patient was Graduated up to be thin liquids and a soft diet, but does recommend patient continue with ST therapy.. Patient needs cueing during her meal. No cough noted -PT, plan for rehabilitation, short-term for strengthening, mobility and continue working with her swallow. Patient should at that point be able to return to her [facility]. Other diagnoses which are her chronic problems were monitored throughout hospital stay. These include; Dementia -Continue home meds COPD, stable Hx MS -stable, monitor Bipolar disorder, stable -Continue home meds SCDs/Heparin for DVT prophylaxis was initiated PT for evaluation and treatment/OT/ST were initiated Pt Condition on Discharge: Stable Discharge Disposition: Discharge to SNF Discharge Instructions DIET: Follow Instructions for: Heart Healthy Diet Speech Therapy-Diet Recommends: Soft, Honey Thickened Liquids Activities you can perform: Weight Bearing as Everardo Follow up Referrals: Neurology PCP Follow-up New Medications: Aspirin DR (Aspirin EC) 325 Mg Tabdr 325 MG PO DAILY Stroke Prevention #30 Ref 1 TAB Atorvastatin (Atorvastatin) 20 Mg Tab 20 MG PO HS Cholesterol Management #30 TAB Clonazepam (Klonopin) 0.5 Mg Tab 0.5 MG PO TID PRN anxiety #30 TAB Continued Medications: Budesonide-Formoterol Inh (Symbicort Inh) 160-4.5 Mcg/Act Aero 2 PUFF INH BID #1 Ref 0 INHALER Cetirizine (Cetirizine) 10 Mg Tab 10 MG PO DAILY Allergies Ref 0 TAB Cholecalciferol (Vitamin D3) 2,000 Unit Cap 2000 UNITS PO DAILY Nutritional Supplement #1 Ref 0 BOTTLE Donepezil (Donepezil) 23 Mg Tab 23 MG PO HS Do not split, crush or chew. Dementia #30 Ref 0 TAB Lactic Acid (Ammonium Lactate) (Ammonium Lactate) 12% Lotn 1 APPLIC TOPICAL DAILY #1 Ref 0 BOTTLE Levothyroxine (Levothyroxine) 50 Mcg Tab 50 MCG PO DAILY Thyroid #30 Ref 0 TAB Meloxicam (Mobic) 7.5 Mg Tab 7.5 MG PO DAILY Pain Ref 0 TAB Memantine Er (Namenda Xr) 28 Mg Caper 28 MG PO DAILY Alzheimer Disease #30 Ref 0 CAP Oxcarbazepine (Trileptal) 300 Mg Tab 300 MG PO BID Seizure Control #60 Ref 0 TAB Oxybutynin (Ditropan) 5 Mg Tab 5 MG PO BID #60 Ref 0 TAB Tiotropium Inh (Spiriva Handihaler) 18 Mcg Cap 18 MCG INH DAILY 1 capsule = 18 mcg COPD #30 Ref 0 CAP Zinc Oxide (Topical) ([place]reauxs Butt Paste) 16 % Oin 1 APPLIC TOP BID PRN DIAPER CHANGE Discontinued Medications: Clonazepam (Clonazepam) 0.5 Mg Tab 0.5 MG PO TID PRN anxiety #90 Ref 0 TAB Jazmine Amador Aug 06, 2016 15:01
[2016-08-06 16:16] VITALS: BP 123/76; PULSE 72; RESP 17; TEMP 96.5; O2SAT 96
[2016-08-06] MEDS ORDERED: SOD PHOSPHATE/SOD BIPHOSPHATE (ADULT) ENEMA 133ML RECTAL ONE (17:15)
[2016-08-07 19:53] LABS: VITAMIN B6 LESS THAN 2.0 ng/mL (2.1-21.7)
== END 2016-08-06 20:30 | disposition home or self-care (01) | DRG 69 ==
LOC: NEPE 09:20 → INTOOBSV 12:02 → NEDA 12:02 → NEDH 18:11 → NEPHCDU 20:54 → N05A 08-02 18:42 → OBSVTOIN 08-03 15:43
PROVIDERS: ADMIT Specialist; ATTEND Specialist
DX: G45.9 Transient cerebral ischemic attack, unspecified (principal); G35 Multiple sclerosis; F03.90 Unspecified dementia, unspecified severity, without behavioral disturbance, psychotic disturbance, mood disturbance, and anxiety; R41.82 Altered mental status, unspecified; F31.9 Bipolar disorder, unspecified; J44.9 Chronic obstructive pulmonary disease, unspecified; E78.00 Pure hypercholesterolemia, unspecified; R47.02 Dysphasia; Z79.82 Long term (current) use of aspirin; Z79.899 Other long term (current) drug therapy; Z86.73 Personal history of transient ischemic attack (TIA), and cerebral infarction without residual deficits
CPT/HCPCS: 70450; 70496; 70498; 70553; 71010; 80061; 80076; 80307; 81001; 82435; 82550; 82565; 82607; 82947; 83921; 84132; 84207; 84295; 84425; 84439; 84443; 84484; 84520; 85025; 85384; 85610; 85652; 85730; 86592; 86850; 86900; 86901; 93005; 93225; 93226; 93306; 93880; 95819; A9579; G0378; J7030; P9612; Q9967